=== PATIENT | female | born 1945 | race Caucasian/White ===

== ENCOUNTER 2022-08-20 08:00 | Outpatient (NON) | payer MEDICARE, BC, SELFPAY | END 2022-08-20 08:01 | disposition home or self-care (01) | PROVIDERS: PCP Internal Medicine; Visit Provider Nurse Practitioner | DX: C44.1121 Basal cell carcinoma of skin of right upper eyelid, including canthus (principal) | CPT/HCPCS: 88305 ==

== ENCOUNTER 2022-10-05 14:25 | Outpatient (NON) | payer MEDICARE, BC, SELFPAY | END 2022-10-05 14:26 | disposition home or self-care (01) | LOC: ANHLAB 14:26 | PROVIDERS: PCP Internal Medicine; Visit Provider Nurse Practitioner | DX: C44.1122 Basal cell carcinoma of skin of right lower eyelid, including canthus (principal) | CPT/HCPCS: 88305; 88331 ==

== ENCOUNTER 2023-03-16 11:48 | Outpatient (NON) | payer MEDICARE, BC, SELFPAY | END 2023-03-16 11:49 | disposition home or self-care (01) | LOC: ANHLAB 03-17 11:50 | PROVIDERS: PCP Internal Medicine; Visit Provider Nurse Practitioner | DX: C44.719 Basal cell carcinoma of skin of left lower limb, including hip (principal) | CPT/HCPCS: 88305 ==

== ENCOUNTER 2023-05-03 14:18 | Outpatient (NON) | payer MEDICARE, BC, SELFPAY | END 2023-05-03 14:19 | disposition home or self-care (01) | LOC: ANHLAB 14:20 | PROVIDERS: PCP Internal Medicine; Visit Provider Nurse Practitioner | DX: C44.719 Basal cell carcinoma of skin of left lower limb, including hip (principal) | CPT/HCPCS: 88305; 88331; 88332 ==

== ENCOUNTER 2023-10-13 08:56 | Outpatient (CLI) | payer MEDICARE, BC, SELFPAY ==
--- NOTE | ~2023-10-13 | XR_ITS ---
XR chest 2V 10/13/2023 09:22 Indication: Cough. Procedure: 2 view chest Comparison: 07/06/2019 Findings: Right upper lobe airspace disease, compatible with pneumonia. Status post median sternotomy for CABG. There is a right breast implant. No significant effusion, edema or pneumothorax. Impression: 1: Right upper lobe pneumonia. Reviewed, dictated and finalized at location B. 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
== END 2023-10-13 08:57 | disposition home or self-care (01) ==
PROVIDERS: PCP Internal Medicine; Visit Provider Internal Medicine
DX: R05.9 Cough, unspecified (principal); J18.9 Pneumonia, unspecified organism
CPT/HCPCS: 71046

== ENCOUNTER 2024-10-16 12:28 | Outpatient (CLI) | payer MEDICARE, BC, SELFPAY ==
--- NOTE | ~2024-10-16 | XR_ITS ---
Lumbosacral Spine: AP and lateral views Clinical History: Pain Findings: No acute fracture evident. There is grade 1 retrolisthesis of L3 over L4. There is 9 mm ant erolisthesis of L5 over S1. There is probable fusion across the L1-L2 disc space with possible mild w edging deformities of the L1 and L2 vertebral bodies. There is moderate to advanced degenerative disc narrowing throughout the remainder of the lumbar spine. There is severe facet arthropathy throughout the lumbar spine. There is extensive atherosclerotic calcification of the aorta. Dextroscoliosis of the lumbar spine present. The sacroiliac joints are normally outlined. Impression: Severe degenerative spondylosis throughout the lumbar spine with dextroscoliosis. Please see details above. Probable fusion across L1-L2 disc space with probable mild anterior wedging deformities of L1 and L2. 9 mm anterolisthesis of L5 over S1. Mild grade 1 retrolisthesis of L3 over L4. Reviewed, dictated and finalized at location . S SUPPORT REPRESENTATIVE Impression: Severe degenerative spondylosis throughout the lumbar spine with dextroscoliosi s. Please see details above. Probable fusion across L1-L2 disc space with probable mild anterior wedging def ormities of L1 and L2. 9 mm anterolisthesis of L5 over S1. Mild grade 1 retrolisthesis of L3 over L4.
--- NOTE | ~2024-10-16 | XR_ITS ---
AP view of the pelvis and oblique views of the SI joints CLINICAL HISTORY: Back pain FINDINGS: No fracture or dislocation seen. Joint spaces at the hips and SI joints are intact. There i s degenerative spondylosis of lumbar spine. Soft tissues are unremarkable. IMPRESSION: Degenerative spondylosis of the lumbar spine. No fracture or sublocation. SI joints are intact. Reviewed, dictated and finalized at [facility]. 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
== END 2024-10-16 12:29 | disposition home or self-care (01) ==
PROVIDERS: PCP Internal Medicine; Visit Provider Internal Medicine
DX: M43.17 Spondylolisthesis, lumbosacral region (principal); M43.16 Spondylolisthesis, lumbar region; M47.896 Other spondylosis, lumbar region; G89.29 Other chronic pain
CPT/HCPCS: 72110; 72190

== ENCOUNTER 2025-02-27 12:35 | Inpatient (IN) | payer MEDICARE, BC, SELFPAY ==
[2025-02-27] VITALS (18 sets, daily range): BP systolic 92–153; BP diastolic 62–126; PULSE 101–132; RESP 16–24; TEMP 36.4–37.2; O2SAT 96–98; BMI 37.5
--- NOTE | 2025-02-27 | ECHO_ITS ---
Patient Info Name: Coni Lomeli Age: 79 years : 1945 Gender: Female Ht: 61 in Wt: 200 lbs BSA: 2.02 m2 HR: 120 bpm BP: 114 / 76 mmHg Heart Rhythm: Atrial Fibrillation, Tachycardia Technical Quality: Fair Exam Date: 02/27/2025 4:34 PM Exam Location: Echo Lab Patient Status: Inpatient Admit Date: 02/27/2025 Staff Ordering Physician: Gerson Lester MD Erp Implementation Consultant: Mandie Arshad RDCS Attending Provider: Jason Delaney MD Referring Physician: Tayler PERRY; Exam Type: CA echo doppler color flow Study Info Indications - New Afib, RVR Complete two-dimensional, color flow and Doppler transthoracic echocardiogram is performed with contrast to opacify the left ventricle and to improve the deliniation of the left ventricle endocardial borders. Contrast/Agitated Saline Contrast/Ag. Saline: Definity Amount: 8.00 ml Summary 1. Left ventricular chamber dimension is normal. 2. There is mildly increased left ventricular wall thickness. 3. Left ventricular systolic function is moderately reduced, estimated at 30-35%. 4. There is hypokinesis of the apex, anteroseptum, inferoseptum. 5. Right ventricular systolic function is normal. 6. Left atrial chamber dimension is moderately enlarged. 7. Right atrial chamber dimension is mildly enlarged. 8. There is mild tricuspid valve regurgitation. Left Ventricle Left ventricular chamber dimension is normal. There is mildly increased left ventricular wall thickness. Left ventricular systolic function is moderately reduced, estimated at 30-35%. There is hypokinesis of the apex, anteroseptum, inferoseptum. Left ventricular septal wall motion is abnormal with septal motion related to a post-operative state. The left ventricular diastolic function is abnormal. Right Ventricle Right ventricular chamber dimension is normal. Right ventricular systolic function is normal. Left Atria Left atrial chamber dimension is moderately enlarged. Right Atria Right atrial chamber dimension is mildly enlarged. Atrial Septum Intact interatrial septum visualized by color flow imaging. Aortic Valve The aortic valve is not well visualized. There is no aortic valve regurgitation. There is moderate aortic valve calcification. Pulmonic Valve The pulmonic valve is not well visualized. There is no pulmonic regurgitation. Mitral Valve The mitral valve has thickened leaflets. There is trace mitral valve regurgitation. The mitral valve annulus is moderately calcified. Tricuspid Valve There is mild tricuspid valve regurgitation. Pericardium/Pleural There is no pericardial effusion. Inferior Vena Cava Normal inferior vena cava with >50% collapse upon inspiration consistent with normal right atrial pressure, 3 mmHg. Aorta The aortic root size at the sinus of Valsalva is normal. Left Ventricular Outflow Tract Name Value Normal LVOT 2D LVOT Diameter 2.0 cm LVOT Doppler LVOT Peak Gradient 2 mmHg LVOT Mean Gradient 1 mmHg LVOT VTI 11 cm LVOT Stroke Volume 33 ml LVOT CO 3.9 l/min LVOT CI 1.9 l/min/m2 Pulmonic Valve Name Value Normal RVOT Doppler RVOT Peak Gradient 2 mmHg PV Doppler PV Peak Gradient 3 mmHg Mitral Valve Name Value Normal MV Doppler MV Decel Lewis 698 cm/s2 MV PHT 42 ms MV Area (PHT) 5.3 cm2 4.0-5.0 MV Diastolic Function MV E Peak Velocity 100 cm/s MV A Peak Velocity 0 cm/s MV E/A 237.5 MV Decel Time 144 ms MV Annular TDI MV E/e' (Septal) 9.8 <=8.0 MV E/e' (Lateral) 7.8 <=8.0 MV E/e' (Average) 8.8 Tricuspid Valve Name Value Normal TV Regurgitation Doppler TR Peak Velocity 239 cm/s TR Peak Gradient 23 mmHg Estimated PAP/RSVP RA Pressure 3 mmHg <=5 PA Systolic Pressure 26 mmHg <36 RV Systolic Pressure 26 mmHg <36 Aortic Valve Name Value Normal AV Regurgitation 2D LVOT Area 3.0 cm2 Ventricles Name Value Normal LV Dimensions 2D/MM IVS Diastolic Thickness (2D) 0.7 cm 0.6-1.0 LVID Diastole (2D) 5.0 cm 3.8-5.2 LVIW Diastolic Thickness (2D) 1.0 cm 0.6-0.9 LVID Systole (2D) 3.1 cm 2.2-3.5 LVOT Diameter 2.0 cm LV Mass (2D Cubed) 139.39 g 67.00-162.00 LV Mass Index (2D Cubed) 69 g/m2 43-95 Relative Wall Thickness (2D) 0.40 LV Fractional Shortening/Ejection Fraction 2D/MM LV Fractional Shortening (2D) 37 % 27-45 LV EF (2D Teicholz) 66 % 54-74 LV Diastolic Volume (4C MOD) 114 ml LV EF (4C MOD) 29 % LV Diastolic Volume (2C MOD) 110 ml LV EF (2C MOD) 36 % LV Diastolic Volume (BP MOD) 114 ml 46-106 LV Diastolic Volume Index (BP MOD) 56 ml/m2 29-61 LV Systolic Volume (BP MOD) 76 ml 14-42 LV Systolic Volume Index (BP MOD) 37 ml/m2 8-24 LV EF (BP MOD) 34 % 54-74 LV Diastolic Length (4C) 7.2 cm LV Systolic Length (4C) 7.2 cm LV Stroke Volume (4C MOD) 33 ml Atria Name Value Normal LA Dimensions LA Volume (4C A-L) 57 ml LA Volume (BP A-L) 67 ml RA Dimensions RA Area (4C) 19.0 cm2 <=18.0 Report Signatures
--- NOTE | ~2025-02-27 | XR_ITS ---
XR chest 2V Ordering provider: Carlos Haro MD History: 79 years Female with . new onset afib . Comparison: October 13, 2023 FINDINGS: Right breast implant. MEDIASTINUM: The cardiac silhouette is not enlarged. Postoperative changes in the mediastinum. LUNGS: No effusions or pneumothorax. Opacification in the left lung base suggestive of atelectasis ve rsus pneumonia. OTHER: No free air under the diaphragm. IMPRESSION: Left basilar atelectasis versus pneumonia. Reviewed, dictated and finalized at location A.
--- NOTE | 2025-02-27 12:37 | ECG_ITS ---
Test Date: 2025-02-27 12:42:08 Measurements Intervals [place] Rate: 123 P: 0 TN: 0 QRS: -42 QRSD: 103 T: 90 QT: 286 QTc: 410 Interpretive Statements ATRIAL FIBRILLATION WITH RAPID VENTRICULAR RESPONSE LEFT AXIS DEVIATION PATTERN CONSISTENT WITH PULMONARY DISEASE CANNOT R/O SEPTAL INFARCT, AGE INDETERMINATE LEFT VENTRICULAR HYPERTROPHY WITH ST-T CHANGE BORDERLINE ST-T WAVE ABNORMALITY- INFERIOR LEADS BASELINE ARTIFACT- I, II, III, AVR, AVL, AVF ABNORMAL ECG No previous ECG available for comparison Electronically Signed On 02-27-2025 13:00:50 CDT by Lester Botello D.O.
[2025-02-27 12:56] LABS: Basophils Percent Auto 0.4 % (0.2-1.2); Eosinophils Absolute Auto 0.3 K/mm3 (0-0.3); Eosinophils Percent Auto 4.1 % (0-4.4); Hematocrit 47.3 % (37.0-47.0); Hemoglobin 14.8 g/dL (12.0-15.0); Immature Granulocyte Absolute 0.02 K/mm3 (0.00-0.031); Immature Granulocyte Percent A 0.3 % (0-0.5); Lymphocytes Absolute Auto 2.05 K/mm3 (0.9-3.2); Lymphocytes Percent Auto 26.8 % (18.3-44.2); Mean Corpuscular HGB Conc 31.3 g/dl (32-36); Mean Corpuscular Hemoglobin 27.9 pg (26-34); Mean Corpuscular Volume 89.1 fl (80-100); Mean Platelet Volume 9.5 fl (7.4-10.4); Monocytes Absolute Auto 0.8 K/mm3 (0.1-0.6); Monocytes Percent Auto 10.3 % (2.6-8.5); Neutrophils Absolute Auto 4.5 K/mm3 (1.3-6.7); Neutrophils Percent Auto 58.1 % (45.5-73.1); Platelet Count Result 237 k/mm3 (150-375); Red Blood Count 5.31 M/mm3 (4.2-5.4); Red Cell Distribution Width 14.7 % (11.5-14.5); White Blood Count 7.7 K/mm3 (4.5-10.0)
[2025-02-27 13:06] LABS: Prothrombin Time 13.6 Seconds (11.1-14.7)
[2025-02-27 13:13] LABS: Alanine Aminotransferase 36 U/L (6-35); Albumin Level 4.7 g/dL (3.5-5.1); Alkaline Phosphatase 101 U/L (38-126); Anion Gap 13 mmol/L (4-12); Aspartate Amino Transferase 31 U/L (14-36); Bilirubin,Total 0.9 mg/dL (0.2-1.3); Blood Urea Nitrogen 24 mg/dL (7-17); Calcium 9.6 mg/dL (8.4-10.2); Carbon Dioxide 21 mmol/L (22-30); Chloride 108 mmol/L (98-107); Estimated CRCL calculation 39 ml/min; Estimated Glomerular Filt Rate 50; Glucose 107 mg/dL (65-110); Lipase 170 U/L (23-300); Potassium 4.3 mmol/L (3.4-5.0); Sodium 142 mmol/L (137-145)
[2025-02-27 13:25] LABS: Troponin I < 0.012 ng/mL (0.000-0.034)
[2025-02-27 13:39] LABS: Partial Thromboplastin Time 30.4 Seconds (22.3-36.8)
[2025-02-27] MEDS: ASPIRIN 81 MG CHEWABLE TABLET 324 MG PO (13:53)
[2025-02-27] MEDS: METOPROLOL TARTRATE INJ 5 MG/5 ML VIAL IV PUSH ×3 (13:54→14:40)
[2025-02-27] MEDS: HEPARIN SOD/D5W 100 UNITS/ML 25,000 UNITS/250 ML BAG 12 UNITS IV CONT (13:59)
[2025-02-27] MEDS: HEPARIN SODIUM 5,000 UNITS/ML VIAL 5000 UNITS IV PUSH (14:00)
--- OUTSIDE RECORDS SUMMARY | 2025-02-27 14:05 | XMS_ITS | Clinical Summary ---
Author Organization [facility] [address] Address [address] [place] [address] Care Team Providers Care [employer] Sports Coach Name Role Phone Manish Mckeon MD Primary Care Provider [phone] Allergies Active Allergy Reactions Criticality Noted Date Comments Sulfa (Sulfonamide Antibiotics) Medications metoprolol XL (TOPROL-XL) 25 mg 24 hr tablet take 1 tablet by oral route every day 0 0 12/31/2015 Active aspirin 325 mg tablet take 1 Tablet by oral route every day 0 0 12/31/2015 Active buPROPion SR (WELLBUTRIN SR) 150 mg 12 hr tablet take 1 tablet by oral route 2 times every day 0 0 12/31/2015 Active ezetimibe (ZETIA) 10 mg tablet Take 1 tablet (10 mg total) by mouth daily Active atorvastatin (LIPITOR) 80 mg tablet Take 1 tablet (80 mg total) by mouth daily Active amlodipine-valsa rtan (EXFORGE) 5-160 mg per tablet Take 1 tablet by mouth daily Active liraglutide (VICTOZA) 0.6 mg/0.1 mL (18 mg/3 mL) injection Inject under the skin Active HYDROcodone-acet aminophen (NORCO) 5-325 mg per tablet Take 1 tablet by mouth every 6 (six) hours as needed Active fish oil-dha-epa 1,200-144-216 mg capsule Take by mouth Active Synjardy XR 12.5-1,000 mg tablet, IR & ER, biphasic 24hr 05/31/2023 Activ e Active Problems Problem Noted Date Diagnosed Date Hx of CABG 08/10/2023 Encounters Date Type Department Care Team Description 02/13/2025 9:30 AM CDT Office Visit [facility] Cardiology [address] [place] [address] Willi Da Silva MD Hx of CABG (Primary Dx) from Last 3 Months Surgical History Surgery Date Site/Laterality Comments BREAST SURGERY Bilateral implants TUBAL LIGATION CORONARY ARTERY BYPASS GRAFT CATARACT EXTRACTION BREAST LUMPECTOMY BACK SURGERY Medical History Medical History Date Comments Anxiety ASHD (arteriosclerotic heart disease) Hypertension Cardiac arrest (HCC) Hyperlipidemia Diabetes mellitus (HCC) Skin lesions Family History Medical History Relation Name Comments Heart attack Father 2 Myocardial infa rction; Cause of : Myocardial infarction COPD Mother 2 COPD; Cause of : COPD Relation Name Status Comments Father 1 (Age 68) Father 2 Mother 1 (Age 65) Mother 2 Social History Tobacco Use Types Packs/Day Years Used Date Smoking Tobacco: Never Tobacco Cessation:Counseling Given: Not Answered Alcohol Use Standard Drinks/Week Comments No 0 (1 standard drink = 0.6 oz pur e alcohol) Comments Unknown Sex and Gender Information Value Date Recorded Sex Assigned at Not on file 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 Gender Identity Female 02/04/2024 7:29 AM CDT Sexual Orientation Straight 02/04/2024 7: 29 AM CDT Obstetrics History Last Filed Vital Signs Vital Sign Reading Time Taken Comments Blood Pressure 108/62 02/13/2025 9:13 AM CDT Pulse 78 02/13/2025 9:13 AM CDT Temperature - - Respiratory Rate - - Oxygen Saturation 97% 02/13/2025 9:13 AM CDT Inhaled Oxygen Concentration - - Weight 90.8 kg (200 lb 3.2 oz) 02/13/2025 9:13 A M CDT Height 154.9 cm (5' 1 ) 02/13/2025 9:13 AM CDT Body Mass Index 37.83 02/13/2025 9:13 AM CDT Plan of Treatment Health Maintenance Due Date Last Done Comments Depression Screening 1945 Fall Risk Assessment 1945 Osteoporosis Screening-Bone Density Scan 1945 DTaP/Tdap/Td Vaccine (1 - Tdap) 1955 Hepatitis B Screening 1962 Pneumococcal vaccine 65+ (1 of 1 - PCV) 1994 Zoster Vaccine (1 of 2) 1994 Well Visit 65+ 2009 Covid-19 Vaccine ( season) 2024 10/13/2021, 02/07/2021, 01/17/2021 Influenza Vaccine (Season Ended) 2025 Insurance MEDICARE [facility] MEDICARE [place] [employer] 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
--- OUTSIDE RECORDS SUMMARY | 2025-02-27 14:05 | XMS_ITS | Referral Summary ---
Author Organization [facility] [address] [facility] [address] [place] [address] Care Team Providers Care Visually Impaired Teacher Name Role Phone Manish Mckeon MD Primary Care Provider [phone] Encounters Date Type Department Care Team Description 02/13/2025 9:30 AM CDT Office Visit [facility] Cardiology [address] [place] [address] Willi Da Silva MD Hx of CABG (Primary Dx) from Last 3 Months Allergies Active Allergy Reactions Criticality Noted Date [...] Date Diagnosed Date Hx of CABG 08/10/2023 Social History Tobacco Use Types Packs/Day Years Used Date Smoking Tobacco: Never Tobacco Cessation:Counseling Given: Not Answered Alcohol Use Standard Drinks/Week Comments No 0 (1 standard drink = 0.6 oz pur e alcohol) Comments Unknown Sex and Gender Information Value Date Recorded Sex Assigned at Not on file 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 Gender Identity Female 02/04/2024 7:29 AM CDT Sexual Orientation Straight 02/04/2024 7: 29 AM CDT Last Filed Vital Signs Vital Sign Reading [...] 02/13/2025 9:13 AM CDT Plan of Treatment Not on file Insurance MEDICARE [employer] MEDICARE [employer] Member Subscriber Plan / Payer (Ef fective 2017-Present) Name:Coni Lomeli Relation to Subscriber:Spouse Name:LOMELIMARTELL HENRIQUEZ Date of :1944 (Home) Address: [facility] [place] [address] Payer ID:[id number] (NAIC) Type:BC ALLIANCE Address: [facility] [address] [id number] Care Teams Visually Impaired Teacher Relationship Specialty Start Date End Date Manish Mckeon MD [address] [place] [address] PCP - General 12/31/15
--- NOTE | 2025-02-27 14:08 | ED_ITS ---
HPI - Arrhythmia/Palpitations General Chief Complaint: Arrhythmia/Palpitations Stated Complaint: afib rvr Time Seen by Provider: 02/27/25 12:54 History of Present Illness HPI narrative: 79-year-old female with a past medical history including significant coronary disease with 5 vessel CABG, previous cardiac arrest 30 years ago, hypertension, hyperlipidemia diabetes. Patient presents the emergency department after being at her primary care provider's office and obtaining an EKG that shows AFib with RVR. No history of atrial fibrillation. Patient reported several months of exertional dyspnea and diaphoresis. No chest pain or dizziness. Patient has no symptoms at this time in the emergency department. EKG does confirm AFib RVR with some strain pattern consistent with her known coronary disease. Patient denies any systemic symptoms such as nausea, vomiting, headache, lightheadedness, chest pain or chest pressure, abdominal pain, leg swelling. Endorses diaphoresis and shortness of breath with exertion and states that this been going on for multiple months. Patient's primary care provider did contact me through ahead of time and informed me he was sending the patient to the ER. Patient aware of the plan for admission after workup. Related Data Allergies Allergy/AdvReac Type Severity Reaction Status Date / Time Sulfa (Sulfonamide Allergy Unknown causes a Verified 02/27/25 11:13 Antibiotics) fever Review of Systems 2 Review of Systems: As reviewed above in HPI [facility] Past Medical History Medical History SOB (shortness of breath) Encounter for routine adult health examination with abnormal findings Body mass index (BMI) 40.0-44.9, adult Pneumonia Encounter for routine adult health examination without abnormal findings Hearing loss Encounter for Medicare annual wellness exam Skin lesion Basal cell carcinoma Encounter to establish care Hx of cardiac arrest On shelter drug therapy Adult BMI 39.0-39.9 kg/sq m Chronic back pain Type 2 diabetes mellitus without complication Primary osteoarthritis of both wrists Pain of right hip joint 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 Mixed hyperlipidemia Essential (primary) hypertension Dysuria Colon cancer screening Breast cancer screening BMI 38.0-38.9,adult BMI 36.0-36.9,adult ASHD (arteriosclerotic heart disease) Anxiety Hypercalcemia Hernia Skin lesion of cheek Obesity Surgical History Surgical History S/P CABG x 5 S/P CABG (coronary artery bypass graft) History of bilateral breast implants H/O hernia repair Hx of cataract surgery History of tubal ligation Hx of CABG Hx of lumpectomy Previous back surgery Family History Family History Father Family history of coronary artery disease Social History Social History Smoking status: Never smoker Second hand tobacco smoke exposure: No Alcohol intake: former Substance use: never Substance use type: does not use Lack of Transportation: No Lack of Food: Never True Current Housing: I Have Housing Concerned About Future Housing: No Difficulty Paying Gas/Electric Bills: No Difficulty Paying for Meds: No Currently Unemployed: No Education: Associate Degree Difficulty w/ Childcare or Family Care: No Exam 2 Narrative: GENERAL: [Well-appearing, well-nourished, and in no acute distress.] HEAD: [Normocephalic, atraumatic.] EYES: [PERRLA and EOMI.] ENT: Nares clear, no rhinorrhea or epistaxis. Mucous membranes moist. NECK: Supple. CHEST: [Clear to auscultation. No respiratory distress.] HEART: Irregular rate and rhythm. No murmur heard. [Normal peripheral pulses.] ABDOMEN: [Soft, nondistended], [nontender], [No rigidity or guarding] EXTREMITIES: Normal range of motion. [No edema.] SKIN: Warm, dry, no rash. Varicose veins in the bilateral lower extremities at the ankle NEURO: [No focal deficits]. Alert and oriented [x3.] PSYCH: [Normal mood and affect.] Course Vital Signs Vital signs: Vital Signs Temperature 36.4 C L 02/27/25 12:40 Pulse Rate 121 H 02/27/25 12:40 Respiratory Rate 16 02/27/25 12:40 Blood Pressure 153/81 H 02/27/25 12:40 Pulse Oximetry 97 02/27/25 12:40 Oxygen Delivery Room Air 02/27/25 12:40 Temperature 36.4 C L 02/27/25 12:40 Pulse Rate 127 H 02/27/25 14:40 Respiratory Rate 19 02/27/25 14:39 Blood Pressure 120/96 H 02/27/25 14:39 Pulse Oximetry 96 02/27/25 14:39 Oxygen Delivery Room Air 02/27/25 12:40 MDM - Arrhythmia/Palpitations MDM Narrative Medical decision making narrative: 79-year-old female with complex cardiac history including five-vessel coronary disease and previous cardiac arrest about 30 years ago. She has a history of hypertension, hyperlipidemia and diabetes. Patient is not on any anticoagulation medications. Presents to the emergency department from her primary care provider's office for suspected AFib RVR. Patient has no history of dysrhythmia or AFib. Patient is on metoprolol 25 mg extended release daily for blood pressure control. Patient has no symptoms at this time but states for last several months she has been having exertional dyspnea and exertional diaphoresis. No chest pain or pressure. Saw her decoration checker Dr. Torres about 5 days ago with plans for potential outpatient stress test. Today she went to her PCP for routine follow-up visit and noted that her heart rate was in the 130s to 140s and irregular. Prompted to go to the emergency department. During my initial assessment patient is found to be in AFib RVR with an irregular rhythm but warm well-perfused extremities, no signs of cardiac decompensation as she has clear breath sounds and no edema. Blood pressure within acceptable range. No hypoxia. No tachypnea. Suspicion presently is for new onset atrial fibrillation, possible electrolyte deficiency, possible coronary disease since she has history of 5 vessel CABG. Low suspicion for acute NSTEMI or STEMI. No leg swelling or DVT symptoms or signs. Cardiac workup was ordered including serial troponins, serial EKG, CBC, CMP, chest x- ray. She was given 5 mg IV pushes of metoprolol Q 5 minutes p.r.n. as she takes metoprolol daily. Heparin was initiated for anticoagulation. Patient will be admitted to the IMU after completion workup. Workup shows no leukocytosis or anemia. Negative initial troponin. Coagulation panel initially normal. Electrolytes largely unremarkable. BUN and creatinine about baseline although GFR slightly lower. Glucose normal, normal LFTs. Negative lipase. Chest x-ray was independently reviewed and does have some opacification left lung base suspicious for atelectasis rather than infectious pathology. She has not febrile, not hypoxic or having any shortness of breath at rest. Will defer to primary team if they want to initiate antibiotics but likely more atelectasis. Initial EKG consistent with AFib RVR and does have some ST segment depressions in the lateral leads likely rate dependent. We will re-evaluate after rate control. Patient initiated on heparin at bedside. Patient remains asymptomatic during my re-evaluations. Heart rate now in the low 110s, blood pressure stable. Discussed with the hospitalist team currently being covered by the midlevel provider Imelda. Patient was accepted the IMU at this time. Echocardiogram ordered as well as admission orders placed. Medical Records Attestation: I reviewed the patient's medical records. Lab Data Attestation: I reviewed the patient's lab results. 02/27/25 14:19 02/27/25 12:50 Labs: Lab Results 02/27/25 02/27/25 Range/Units 12:50 14:19 WBC 7.7 7.1 (4.5-10.0) K/mm3 RBC 5.31 5.14 (4.2-5.4) M/mm3 Hgb 14.8 14.4 (12.0-15.0) g/dL Hct 47.3 H 45.7 (37.0-47.0) % MCV 89.1 88.9 (80-100) fl MCH 27.9 28.0 (26-34) pg MCHC 31.3 L 31.5 L (32-36) g/dl RDW 14.7 H 14.6 H (11.5-14.5) % Plt Count 237 230 (150-375) k/mm3 MPV 9.5 9.9 (7.4-10.4) fl Immature Gran % (Auto) 0.3 0.3 (0-0.5) % Neut % (Auto) 58.1 60.4 (45.5-73.1) % Lymph % (Auto) 26.8 24.0 (18.3-44.2) % Nolan % (Auto) 10.3 H 10.2 H (2.6-8.5) % Eos % (Auto) 4.1 4.5 H (0-4.4) % Baso % (Auto) 0.4 0.6 (0.2-1.2) % Lymph # (Auto) 2.05 1.70 (0.9-3.2) K/mm3 Nolan # (Auto) 0.8 H 0.7 H (0.1-0.6) K/mm3 Eos # (Auto) 0.3 0.3 (0-0.3) K/mm3 Baso # (Auto) 0.0 0.0 (0.0-0.1) K/mm3 Abs Immat Gran (auto) 0.02 0.02 (0.00-0.031) K/mm3 Absolute Neuts (auto) 4.5 4.3 (1.3-6.7) K/mm3 Absolute Nucleated RBC 0.000 0.000 (0.0-0.012) K/mm3 Nucleated RBC % 0.0 0.0 (0.0-0.2) % PT 13.6 Pending (11.1-14.7) Seconds INR 1.0 Pending APTT 30.4 Pending (22.3-36.8) Seconds Sodium 142 (137-145) mmol/L Potassium 4.3 (3.4-5.0) mmol/L Chloride 108 H (98-107) mmol/L Carbon Dioxide 21 L (22-30) mmol/L Anion Gap 13 H (4-12) mmol/L BUN 24 H (7-17) mg/dL Creatinine 1.05 H (0.7-1.0) mg/dL Estim Creat Clear Calc 39 ml/min Estimated GFR 50 L (59 - ) Glucose 107 (65-110) mg/dL Calcium 9.6 (8.4-10.2) mg/dL Total Bilirubin 0.9 (0.2-1.3) mg/dL AST 31 (14-36) U/L ALT 36 H (6-35) U/L Alkaline Phosphatase 101 (38-126) U/L Troponin I < 0.012 (0.000-0.034) ng/mL Total Protein 8.0 (6.3-8.2) g/dL Albumin 4.7 (3.5-5.1) g/dL Lipase 170 (23-300) U/L Imaging Data Attestation: I personally reviewed and interpreted this imaging study as follows: My impression: Impressions Chest X-Ray 02/27/25 13:51 IMPRESSION: Left basilar atelectasis versus pneumonia. ECG Data EKG #1: Attestation: I personally reviewed and interpreted this ECG as follows: ECG completion date: 02/27/25 ECG completion time: 12:42 Prior ECG tracings: not available for review Interpretation: Rate of 124, no identifiable P waves, QTC 410, some lateral ST depressions in leads 1 and aVL with no ST segment elevations. Atrial fibrillation. No previous EKG in the chart for comparison. Critical Care Time Critical Care Time Critical Care Time: Yes Total Critical Care Time: 60 Discharge Plan Discharge Clinical Impression: Atrial fibrillation with rapid ventricular response, New onset a-fib, Hx of CABG Patient Disposition: Still a Patient Condition: Stable Patient Language: American Prescriptions: No Action (DME) pen needle, diabetic 32 gauge x 1/4 needle See Rx Instructions .Route Qty: 100 3RF Rx Instructions: As directed. For use with Victoza pen BD micro/ultra fine needle nitroglycerin 0.4 mg tablet, sublingual 0.4 mg sublingual Q5M PRN (Reason: chest pain) Qty: 25 0RF Rx Instructions: do not exceed 3 doses per episode metoprolol succinate 25 mg tablet extended release 24 hr 25 mg PO BID Qty: 180 1RF atorvastatin 80 mg tablet See Rx Instructions .ROUTE .COMPLEX Qty: 90 1RF Dose Instruction: TAKE 1 TABLET DAILY Rx Instructions: TAKE 1 TABLET DAILY bupropion HCl 150 mg tablet sustained-release 12 hr See Rx Instructions .ROUTE .COMPLEX Qty: 180 1RF Dose Instruction: TAKE 1 TABLET TWICE A DAY Rx Instructions: TAKE 1 TABLET TWICE A DAY Victoza 3-Marty 0.6 mg/0.1 mL (18 mg/3 mL) pen injector See Rx Instructions .ROUTE .COMPLEX Qty: 27 1RF Dose Instruction: INJECT 0.3ML (=1.8MG) SUBCUTANEOUSLY DAILY Rx Instructions: INJECT 0.3ML (=1.8MG) SUBCUTANEOUSLY DAILY hydrocodone-acetaminophen 5-325 mg tablet 1 tablet PO Q4-6H PRN (Reason: pain) Qty: 60 0RF ezetimibe 10 mg tablet See Rx Instructions .ROUTE .COMPLEX Qty: 90 1RF Dose Instruction: TAKE 1 TABLET DAILY Rx Instructions: TAKE 1 TABLET DAILY Synjardy XR 12.5-1,000 mg tablet, IR - ER, biphasic 24hr 1 tablet PO DAILY Qty: 90 1RF Rx Instructions: Please D/C the Alejandrina. Thank you amlodipine-valsartan [Exforge] 5-160 mg tablet 1 tablet PO DAILY Qty: 90 1RF Follow-up/Referrals: Manish Mckeon MD [Primary Care Provider] - Time of Disposition: 14:55
[2025-02-27 14:25] LABS: Basophils Percent Auto 0.6 % (0.2-1.2); Eosinophils Absolute Auto 0.3 K/mm3 (0-0.3); Eosinophils Percent Auto 4.5 % (0-4.4); Hematocrit 45.7 % (37.0-47.0); Hemoglobin 14.4 g/dL (12.0-15.0); Immature Granulocyte Absolute 0.02 K/mm3 (0.00-0.031); Immature Granulocyte Percent A 0.3 % (0-0.5); Mean Corpuscular HGB Conc 31.5 g/dl (32-36); Mean Corpuscular Volume 88.9 fl (80-100); Mean Platelet Volume 9.9 fl (7.4-10.4); Monocytes Absolute Auto 0.7 K/mm3 (0.1-0.6); Monocytes Percent Auto 10.2 % (2.6-8.5); Neutrophils Absolute Auto 4.3 K/mm3 (1.3-6.7); Neutrophils Percent Auto 60.4 % (45.5-73.1); Platelet Count Result 230 k/mm3 (150-375); Red Blood Count 5.14 M/mm3 (4.2-5.4); Red Cell Distribution Width 14.6 % (11.5-14.5); White Blood Count 7.1 K/mm3 (4.5-10.0)
[2025-02-27 14:40] LABS: INR 1.1; Prothrombin Time 14.9 Seconds (11.1-14.7)
--- OUTSIDE RECORDS SUMMARY | 2025-02-27 14:51 | XMS_ITS | Clinical Summary ---
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
--- OUTSIDE RECORDS SUMMARY | 2025-02-27 14:51 | XMS_ITS | Referral Summary ---
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
--- OUTSIDE RECORDS SUMMARY | 2025-02-27 14:51 | XMS_ITS | Continuity of Care Document ---
Author Organization [facility] Address [address] [place] [address] Phone Care Team Providers Care Physicians Assistant Name Role Phone Miguel Angel Hernandez Unavailable Unavailable Procedures Procedure Date Post-op Follow-up Visit Remove Cataract, Insert Lens PreOp Assessment Performed No Charge Cataract Check Eye Exam & Treatment Dilated Retinal Exam W Interpretation Oc IOLMaster-Professional Office/outpatient Visit, Est Dilated Retinal Exam W Interpretation Ap Refraction Post-op Follow-up Visit Post-op Follow-up Visit Remove Cataract, Insert Lens No Charge Cataract Check Office/outpatient Visit, [facility] IOLMaster Advance Directives Directive Yes / No Effective Date File Name No Information Encounters Encounter Description Practice Location Reason(s) For Visit Diagnoses Date Provider Providers Copied on Encounter [facility], [address] [place] [address] [address], [place], [place], [id number], [place] tel:[phone] [facility] No Information 0 David Michelle. [address] , [address], [place], [address], [place]. tel:[phone] [facility], [address], [place], [place], [id number], [place] tel:[phone] [facility] No Information Nov-1 6-201 0 Doijason Edamado. [address] , [address], [place], [place], [facility][note 3], [place]. tel:[phone] [facility], [address], [place], [place], [id number], [place] tel:[phone] [facility] No Information Oct-2 6-201 0 Doisy Edamado. [address] , [address], [place], [place], [facility][note 3], [place]. tel:[phone] [facility], [address] [place] [address] [address], [place], [place], [address], [place] tel:[phone] [facility] No Information Oct-2 0-201 0 David Edamado. [address], [address], [place], [place], [facility][note 3], [place]. tel:[phone] Referring Provider: Miguel Angel Ramirez, [facility] [address], [place], [place], [facility][note 3]. tel:[phone] Office/outpat ient Visit, [facility], [address] [place] [address] [address], [place], [place], [address], [place] tel:[phone] [facility] No Information Apr-0 5-201 0 David Michelle. [address], [place], [place], [facility][note 3], [place]. tel:[phone] Referring Provider: Miguel Angel Ramirez, [address], [place], [place], [facility][note 3]. tel:[phone] [facility], [address] [place] [address] [address], [place], [place], [address], [place] tel:[phone] [facility] No Information Oct-0 7-200 9 David Edamado. [address], [place], [address], [place]. tel:[phone] [facility], [address], [place], [place], [address], [place] tel:[phone] [facility] No Information Sep-2 3-200 9 David Michelle. [address] , [address], [place], [place], [facility][note 3], [place]. tel:[phone] [facility], [address], [place], [place], [id number], [place] tel:[phone] [facility] No Information Sep-2 2-200 9 Doijason Michelle. [address] , [address], [place], [place], [facility][note 3], [place]. tel:[phone] Referring Provider: Manish Mckeon MD C, [address], [place], [place], [facility]. tel:[phone] [facility], [address], [place], [place], [address], [place] tel:[phone] [facility] No Information Sep-0 8-200 9 Doijason Michelle. [address] [facility] [address] [address] , [address], [place], [address], [place]. tel:[phone] Referring Provider: Miguel Angel Ramirez, [facility] [address], [place], [place], [facility][note 3]. tel:[phone] Office/outpat ient Visit, [facility], [address], [place], [place], [id number], [place] tel:[phone] [facility] No Information Aug-2 7-200 9 David Michelle. [address] , [address], [place], [address], [place]. tel:[phone] Referring Provider: Lucina King OD, [address] [place] [address], [address]. tel:[phone] Family History Family Member Type Diagnosis Age At Onset No Information Payers Payer name Insurance type Covered democrat ID Authoriza tion(s) No Information Social History Type Description Quantity Date Captured Comments Sex Female Smoking Status No Information Chief Complaint And Reason For Visit No Information Reason For Referral Reason For Referral No Information History Of Present Illness Encounter Date Complaint History Of Prese nt Illness No Information Functional Status Date Functional Assessmen t No Information Instructions Date Instruction Additional Infor mation No Information Assessments Type Assessment Date No Information Patient Care Teams Name Effective Dates (start - stop) Status Members No Information
[2025-02-27 14:58] LABS: Partial Thromboplastin Time > 200.0 Seconds (22.3-36.8)
--- NOTE | 2025-02-27 15:14 | ECG_ITS ---
Test Date: 2025-02-27 15:29:13 Measurements Intervals [place] Rate: 116 P: 0 TX: 0 QRS: -43 QRSD: 116 T: 76 QT: 330 QTc: 460 Interpretive Statements ATRIAL FLUTTER/TACHYCARDIA WITH RAPID VENTRICULAR RESPONSE LEFT AXIS DEVIATION INTRAVENTRICULAR CONDUCTION DELAY PATTERN CONSISTENT WITH PULMONARY DISEASE LEFT VENTRICULAR HYPERTROPHY AND ST-T CHANGE CANNOT R/O SEPTAL INFARCT, AGE INDETERMINATE BASELINE ARTIFACT- I, III, AVR, AVL ABNORMAL ECG Compared to ECG 02/27/2025 12:42:08 NO SIGNIFICANT CHANGE Electronically Signed On 02-27-2025 15:57:08 CDT by Lester Botello D.O.
[2025-02-27 15:50] LABS: Partial Thromboplastin Time 190.8 Seconds (22.3-36.8)
[2025-02-27 15:52] LABS: Troponin I 0.022 ng/mL (0.000-0.034)
--- NOTE | 2025-02-27 16:29 | ADMGEN ---
This patient, Coni Lomeli, was admitted to IMU Room 214-01. Patient/family oriented to hospital policies and general routines including ID bracelet, bed and alarms, visiting hours, pain management, procedures, bathroom and other care routines, personal items, smoking policy, room service/diet, and visiting hours. Information on how to activate the Rapid Response Team has been discussed. Patient/Family are encouraged to report perceived risks to care and to ask questions if they do not understand what they are told or what they should do.
--- NOTE | 2025-02-27 16:39 | P.HP_ITS ---
H&P: HPI History of Present Illness Date/Time: 02/27/25 16:39 Chief Complaint: New Cardiac Dysrhythmia, Exertional SOB Narrative: 79 y/o F with PMH of diabetes, HLD, HTN, atherosclerotic heart disease, CABG (5 vessel), cardiac arrest (30 years ago), and anxiety presents here with new atrial fibrillation. The patient presents here via wheelchair from her PCP on 02/27 for further evaluation of new onset atrial fibrillation. The patient was at her routine exam today with Mike ARMIJO. At this visit she reported 5 to 6 months of intermittent exertional dyspnea. Has not been bothersome, however the shortness of breath is accompanied by diaphoresis. She reports it is significant and she will be diaphoretic from her head to her toes and would occur at rest as well as with activity. She denies chest pain, dizziness, palpitations, lower extremity edema, weight gain, nausea, vomiting, or diarrhea. Per the patient's PCP note from today, the patient saw her outdoor studies professor (Rekha ARMIJO) 5 days prior. She was offered a Lexiscan which she opted out as she did not get the impression it was absolutely necessary and more just offered. No changes to her medications at that visit. PCP obtained an in office EKG which showed new dysrhythmia. Initially believed to be atrial fibrillation with RVR, however cardiology reviewed and now reading EKG as atrial flutter/tachycardia with RVR. The patient arrived to the emergency department with a heart rate in the 120s. Repeat EKG redemonstrated atrial flutter/tachycardia with RVR. Denies any recent surgery, immobilization, hemoptysis or pain redness to her lower extremities. Initial VS at presentation: 97.5? F, HR 121, RR 16, 153/81, and 97% on RA. ED workup showed: No leukocytosis, no anemia, INR 1.1, creatinine 1.05 and GFR 50 (previously 0.96 and GFR 60 on 02/23/2025), initial troponin negative. CXR showed left basilar atelectasis versus pneumonia. EKG showed atrial flutter/tachycardia with RVR, left axis deviation, pattern consistent with pul monary disease, cannot rule out septal infarct age indeterminate, LVH with ST-T change, borderline ST-T-wave abnormality inferior leads. Review of Systems Review of Systems: All systems reviewed & are unremarkable except as noted in HPI and below [facility] Past Medical History Medical History Pneumonia Hearing loss Skin lesion Basal cell carcinoma Hx of cardiac arrest On care home drug therapy Chronic back pain Type 2 diabetes mellitus without complication Primary osteoarthritis of both wrists Pain of right hip joint Mixed hyperlipidemia Essential (primary) hypertension Dysuria Colon cancer screening Breast cancer screening ASHD (arteriosclerotic heart disease) Anxiety Hypercalcemia Hernia Skin lesion of cheek Obesity Surgical History Surgical History S/P CABG x 5 History of bilateral breast implants H/O hernia repair Hx of cataract surgery History of tubal ligation Hx of lumpectomy Previous back surgery Family History Family History Father Family history of coronary artery disease Social History Social History Smoking status: Never smoker Second hand tobacco smoke exposure: No Alcohol intake: never Substance use: never Substance use type: does not use Do You Feel Safe in your Home?: Yes Lack of Transportation: No Lack of Food: Never True Current Housing: I Have Housing Concerned About Future Housing: No Difficulty Paying Gas/Electric Bills: No Difficulty Paying for Meds: No Currently Unemployed: No Education: Decline to Answer Difficulty w/ Childcare or Family Care: No Spiritual care concerns: No Meds Home Medications and Allergies Home Medications ?Medication ?Instructions ?Recorded ?Confirmed ?Type atorvastatin 80 mg tablet See Rx Instructions .Route 09/29/24 02/27/25 Rx .COMPLEX #90 tabs bupropion HCl 150 mg tablet,12 hr See Rx Instructions .Route 10/16/24 02/27/25 Rx sustained-release .COMPLEX #180 tabs liraglutide 0.6 mg/0.1 mL (18 mg/3 See Rx Instructions .Route 10/16/24 02/27/25 Rx mL) subcutaneous pen injector .COMPLEX #27 mL (Victoza 3-Marty) hydrocodone 5 mg-acetaminophen 325 1 tablet PO Q4-6H PRN pain #60 tabs 01/10/25 02/27/25 Rx mg tablet empagliflozin 12.5 mg-metformin ER 1 tablet PO DAILY #90 ea 02/06/25 02/27/25 Rx 1,000 mg tablet,extended rel 24 hr (Synjardy XR) ezetimibe 10 mg tablet See Rx Instructions .Route 02/06/25 02/27/25 Rx .COMPLEX #90 tabs amlodipine 5 mg-valsartan 160 mg 1 tablet PO DAILY #90 tabs 02/24/25 02/27/25 Rx tablet (Exforge) ascorbic acid (vitamin C) 1,000 mg 1,500 g PO DAILY 02/27/25 02/27/25 History tablet (C-1000) aspirin 325 mg tablet 325 mg PO DAILY 02/27/25 02/27/25 History mag citrate-potassium citrate 210 mg PO DAILY 02/27/25 02/27/25 History metoprolol succinate 25 mg 25 mg PO DAILY 02/27/25 02/27/25 History tablet,extended release 24 hr kovtfvxa-jsvc-aeib 8 mg-folic 400 1 tablet PO DAILY 02/27/25 02/27/25 History mcg-K 50 mcg-lutein 300 mcg tablet (Centrum Silver Women) nitroglycerin 0.4 mg sublingual 0.4 mg sublingual Q5M PRN chest 02/27/25 02/27/25 Rx tablet pain #25 tabs pen needle, diabetic 32 gauge x #100 ea 02/27/25 02/27/25 Rx 1/4 vitamin E 268 mg (400 unit) capsule 268 mg PO DAILY 02/27/25 02/27/25 History Allergies Allergy/AdvReac Type Severity Reaction Status Date / Time Sulfa (Sulfonamide Allergy Unknown causes a Verified 02/27/25 11:13 Antibiotics) fever Vital Signs Vital Signs - 24 hr 02/27/25 12:40 02/27/25 13:54 02/27/25 14:19 Temperature 97.5 F L Pulse Rate 121 H 120 H 132 H Respiratory Rate 16 18 Blood Pressure 153/81 H 146/126 H Pulse Oximetry 97 98 Oxygen Delivery Room Air 02/27/25 14:20 02/27/25 14:26 02/27/25 14:39 Temperature Pulse Rate 130 H 123 H 126 H Respiratory Rate 19 19 Blood Pressure 121/88 120/96 H Pulse Oximetry 98 96 Oxygen Delivery 02/27/25 14:40 02/27/25 15:16 02/27/25 15:57 Temperature Pulse Rate 127 H 116 H 116 H Respiratory Rate 18 20 Blood Pressure 114/76 128/82 Pulse Oximetry 97 96 Oxygen Delivery 02/27/25 16:29 Temperature 97.6 F Pulse Rate 117 H Respiratory Rate 24 H Blood Pressure 136/85 Pulse Oximetry 97 Oxygen Delivery Exam Const: General: comfortable and no acute distress Other: , female, elderly, nontoxic appearance HENMT: Face/Nose/Sinus: Normal nares present Mouth: Yes moist mucous membranes Eyes: General: appearance normal, both eyes and all related structures Sclera: sclerae normal Pupils: Equal, round and reactive pupils present EOM: EOMs intact bilaterally Resp: Effort & Inspection: normal respiratory effort Auscultation: clear to auscultation bilaterally Cardio: Rate: tachycardic (Mild, 110-117) Rhythm: abnormal rhythm (Consistent with new atrial flutter) Other: No murmur or rub. GI: Other: Abdomen soft, nondistended, nontender. Normoactive bowel sounds in all quadrants. Skin: General skin exam: normal color and no rashes or lesions noted Wounds: no wounds Neuro: Speech: normal speech Motor exam (neuro): 5/5 motor strength present throughout Sensory Exam: normal sensation Other: A&O x4 Extrem: General: normal to inspection Psych: Mental Status: mental status grossly normal Affect: normal affect Other: Good insight and judgment, very pleasant H&P: Results Labs Labs: Short CBC 02/27/25 02/27/25 Range/Units 12:50 14:19 WBC 7.7 7.1 (4.5-10.0) K/mm3 Hgb 14.8 14.4 (12.0-15.0) g/dL Hct 47.3 H 45.7 (37.0-47.0) % Plt Count 237 230 (150-375) k/mm3 BMP 02/27/25 12:50 Sodium 142 Potassium 4.3 Chloride 108 H Carbon Dioxide 21 L BUN 24 H Creatinine 1.05 H Glucose 107 Calcium 9.6 Cardiac Enzymes 02/27/25 02/27/25 Range/Units 12:50 15:19 Troponin I < 0.012 0.022 D (0.000-0.034) ng/mL Liver Function 02/27/25 Range/Units 12:50 Total Bilirubin 0.9 (0.2-1.3) mg/dL AST 31 (14-36) U/L ALT 36 H (6-35) U/L Alkaline Phosphatase 101 (38-126) U/L Albumin 4.7 (3.5-5.1) g/dL Assessment and Plan Assessment and plan (1) Atrial flutter with rapid ventricular response: Code(s): I48.92 - Unspecified atrial flutter Status: Acute Assessment and Plan: Initial EKG showed atrial flutter/atrial tachycardia with RVR. See report for full details. Previously on metoprolol ER 25 mg daily. Given metoprolol 5 mg IV x3 (121 -> 117) however now back and sustaining in the 120s. Will start diltiazem gtt at 5 mg/hr with 10 mg IV push. Heparin initiated to bridge to anticoagulation, CHADSVasc 6. Check echo (none on file). Recent TSH was WNL on 02/23/25 Cardiology consulted. Admission to IMU for close hemodynamic monitoring and telemetry monitoring. (2) SOB (shortness of breath): Code(s): R06.02 - Shortness of breath Status: Acute Assessment and Plan: CXR showed a left basilar atelectasis versus pneumonia. Personal review of imaging favors atelectasis. Patient is afebrile and no leukocytosis, low suspicion for pneumonia. Continue to monitor WBC. New atrial flutter discovered at her PCP office, see above. No echo on file, ordered due to new atrial flutter. Wells criteria: 0 No anemia or significant electrolyte derangements on initial lab work. DDx: Paroxysmal atrial flutter, congestive heart failure, pneumonia, myocardial infarction. In favor of paroxysmal atrial flutter, unclear onset. (3) Diabetes mellitus type 2 in obese: Code(s): E11.69 - Type 2 diabetes mellitus with other specified complication; E66.9 - Obesity, unspecified Status: Acute Assessment and Plan: hypoglycemia protocol POC blood glucose ACHS home medication: Hold Synjardy XR in case of need for contrast. Hold Victoza 1.8 mg SQ daily (NF). correct regimen ordered - high dose TIDWM and HS, based off BMI A1C 5.7% on 02/23/2025 (4) Hypertension: Qualifiers: Hypertension type: primary hypertension Qualified Code(s): I10 - Essential (primary) hypertension Code(s): I10 - Essential (primary) hypertension Status: Acute Assessment and Plan: chronic, currently 104/63 continue home medications: Hold Amlodipine-valsartan 5-160 mg daily, low end of normal, resume when appropriate. Hold metoprolol ER 25 mg daily, new atrial flutter requiring med adjustments. monitor Plan Diet: Heart healthy GI Prophylaxis: Not currently indicated DVT Prophylaxis: Heparin gtt IV fluids: None Lines/Tubes: Peripheral IV Code Status: Full code Quality VTE Prophylaxis VTE prophylaxis: pharmacologic ordered Hospitalist MIPS Advance Care Plan I have confirmed that the patient's Advanced Care Plan is present, code status is documented, or surrogate decision maker is listed in patient medical record.: Yes Medication Reconciliation I have utilized all available resources to obtain, update and review the patients current medications (includes all prescriptions, OTC, herbals, cannabis, and nutritional supplements).: Yes
[2025-02-27] MEDS: PERFLUTREN LIPID MICROSPHERES 1.5 ML VIAL DILUTED TO 10 ML TOTAL VOLUME IV PUSH (17:10)
--- NOTE | 2025-02-27 17:32 | IVDEFINITY ---
Prior to administration of IV Definity the patient was educated on the risks and benefits of the imaging enhancing agent including potential adverse side effects. The patient verbalized understanding. Allergies were verified. No exclusion criteria were identified and at least one of the following inclusion criteria were met: 1) physician request, 2) patient technically difficult to image (per the [place] [employer] Echocardi[employer] guidelines of two or more segments not discernable within the apical view), or 3) questionable left ventricular function. ?
--- OUTSIDE RECORDS SUMMARY | 2025-02-27 17:47 | XMS_ITS | Continuity of Care Document ---
Author Organization [facility] Address [address] [place] [address] Phone Care Team Providers Care Ross Carrier Driver Name Role Phone Miguel Angel Hernandez Unavailable Unavailable Procedures Procedure Date Post-op Follow-up Visit Remove Cataract, Insert Lens PreOp Assessment Performed No Charge Cataract Check Eye Exam & Treatment Dilated Retinal Exam W Interpretation Oc IOLMaster-Professional Office/outpatient Visit, Est Dilated Retinal Exam W Interpretation Ap Refraction Post-op Follow-up Visit Post-op Follow-up Visit Remove Cataract, Insert Lens No Charge Cataract Check Office/outpatient Visit, [facility] IOLMaster Advance Directives Directive Yes / No Effective Date File Name No Information Encounters Encounter Description Practice Location Reason(s) For Visit Diagnoses Date Provider Providers Copied on Encounter [facility], [address] [place] [address] [address], [place], [place], [id number], [place] tel:[phone] [facility] No Information 0 David Michelle. [address] , [address], [place], [address], [place]. tel:[phone] [facility], [address], [place], [place], [address], [place] tel:[phone] [facility] No Information Nov-1 6-201 0 Doijason Edamado. [address] , [address], [place], [place], [facility], [place]. tel:[phone] [facility], [address], [place], [place], [address], [place] tel:[phone] [facility] No Information Oct-2 6-201 0 Doisy Edamado. [address] , [address], [place], [place], [facility], [place]. tel:[phone] [facility], [address] [place] [address] [address], [place], [place], [address], [place] tel:[phone] [facility] No Information Oct-2 0-201 0 David Edamado. [address], [address], [place], [place], [facility], [place]. tel:[phone] Referring Provider: Miguel Angel Ramirez, [facility] [address], [place], [place], [facility]. tel:[phone] Office/outpat ient Visit, [facility], [id number] [place] [address] [address], [place], [place], [address], [place] tel:[phone] [facility] No Information Apr-0 5-201 0 David Michelle. [address], [place], [place], [facility], [place]. tel:[phone] Referring Provider: Miguel Angel Ramirez, [address], [place], [facility]. tel:[phone] [facility], [address] [place] [address] [address], [place], [place], [address], [place] tel:[phone] [facility] No Information Oct-0 7-200 9 David Edamado. [address], [place], [address], [place]. tel:[phone] [facility], [address], [place], [place], [address], [place] tel:[phone] [facility] No Information Sep-2 3-200 9 David Michelle. [address] , [address], [place], [place], [facility], [place]. tel:[phone] [facility], [address], [place], [place], [address], [place] tel:[phone] [facility] No Information Sep-2 2-200 9 Doijason Michelle. [address] , [address], [place], [place], [facility], [place]. tel:[phone] Referring Provider: Manish Mckeon MD C, [address], [place], [place], [facility]. tel:[phone] [facility], [address], [place], [place], [address], [place] tel:[phone] [facility] No Information Sep-0 8-200 9 Doijason Michelle. [address] , [address], [place], [address], [place]. tel:[phone] Referring Provider: Miguel Angel Ramirez, [facility] [address], [place], [place], [facility]. tel:[phone] Office/outpat ient Visit, [facility], [address], [place], [place], [address], [place] tel:[phone] [facility] No Information Aug-2 7-200 9 David Michelle. [address] , [address], [place], [address], [place]. tel:[phone] Referring Provider: Lucina King OD, [address] [place] [address], [address]. tel:[phone] Family History Family Member Type Diagnosis Age At Onset No Information Payers Payer name Insurance type Covered green party ID Authoriza tion(s) No Information Social History [...]
--- OUTSIDE RECORDS SUMMARY | 2025-02-27 17:47 | XMS_ITS | Referral Summary ---
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
--- OUTSIDE RECORDS SUMMARY | 2025-02-27 17:47 | XMS_ITS | Clinical Summary ---
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
[2025-02-27] MEDS: dilTIAZem HCl INJ 25 MG/5 ML VIAL 10 MG IV PUSH (18:19)
[2025-02-27] MEDS: dilTIAZem 100 MG/100 ML 100 MG/100 ML BAG IV CONT (18:20)
[2025-02-27 20:06] LABS: Glucose Point of Care 115 mg/dl (65-105)
[2025-02-27] MEDS: buPROPion HCL SR (12 HR) 150 MG TAB PO (20:24)
[2025-02-27 20:30] LABS: Troponin I 0.023 ng/mL (0.000-0.034)
[2025-02-28] VITALS (26 sets, daily range): BP systolic 100–108; BP diastolic 50–86; PULSE 78–137; RESP 18–20; TEMP 36.5–37.1; O2SAT 94–100
[2025-02-28 02:28] LABS: Basophils Percent Auto 0.6 % (0.2-1.2); Eosinophils Absolute Auto 0.3 K/mm3 (0-0.3); Eosinophils Percent Auto 4.2 % (0-4.4); Hematocrit 42.3 % (37.0-47.0); Hemoglobin 13.5 g/dL (12.0-15.0); Immature Granulocyte Absolute 0.02 K/mm3 (0.00-0.031); Immature Granulocyte Percent A 0.3 % (0-0.5); Lymphocytes Absolute Auto 1.94 K/mm3 (0.9-3.2); Lymphocytes Percent Auto 28.2 % (18.3-44.2); Mean Corpuscular HGB Conc 31.9 g/dl (32-36); Mean Corpuscular Hemoglobin 28.1 pg (26-34); Mean Corpuscular Volume 88.1 fl (80-100); Mean Platelet Volume 9.6 fl (7.4-10.4); Monocytes Absolute Auto 0.7 K/mm3 (0.1-0.6); Monocytes Percent Auto 10.3 % (2.6-8.5); Neutrophils Absolute Auto 3.9 K/mm3 (1.3-6.7); Neutrophils Percent Auto 56.4 % (45.5-73.1); Platelet Count Result 181 k/mm3 (150-375); Red Cell Distribution Width 14.6 % (11.5-14.5); White Blood Count 6.9 K/mm3 (4.5-10.0)
[2025-02-28 02:37] LABS: Alanine Aminotransferase 32 U/L (6-35); Alkaline Phosphatase 76 U/L (38-126); Anion Gap 10 mmol/L (4-12); Aspartate Amino Transferase 30 U/L (14-36); Bilirubin,Total 0.6 mg/dL (0.2-1.3); Blood Urea Nitrogen 27 mg/dL (7-17); Calcium 8.9 mg/dL (8.4-10.2); Carbon Dioxide 22 mmol/L (22-30); Chloride 107 mmol/L (98-107); Estimated CRCL calculation 41 ml/min; Estimated Glomerular Filt Rate 55; Glucose 85 mg/dL (65-110); Potassium 3.9 mmol/L (3.4-5.0); Sodium 139 mmol/L (137-145)
[2025-02-28 02:51] LABS: Partial Thromboplastin Time 91.8 Seconds (22.3-36.8)
[2025-02-28 08:55] LABS: Glucose Point of Care 93 mg/dl (65-105)
[2025-02-28] MEDS: EZETIMIBE 10 MG TABLET PO (09:19)
[2025-02-28] MEDS: ASCORBIC ACID 500 MG TABLET 1500 MG PO (09:19)
[2025-02-28] MEDS: VITAMIN E 400 UNIT CAPSULE PO (09:19)
[2025-02-28] MEDS: ATORVASTATIN 40 MG TABLET 80 MG PO (09:19)
[2025-02-28] MEDS: buPROPion HCL SR (12 HR) 150 MG TAB PO ×2 (09:19→20:29)
[2025-02-28] MEDS: THERAPEUTIC MULTIVITAMINS/MINERALS TAB (*BKC) 1 TABLET PO (09:19)
[2025-02-28] MEDS: dilTIAZem 100 MG/100 ML 100 MG/100 ML BAG 10 MG IV CONT (09:45)
[2025-02-28 10:36] LABS: Partial Thromboplastin Time 70.5 Seconds (22.3-36.8)
[2025-02-28] MEDS: HEPARIN SODIUM 5,000 UNITS/ML VIAL 2500 UNITS IV PUSH (10:58)
--- NOTE | 2025-02-28 11:05 | P.CONCA_ITS ---
Assessment and Plan Assessment and plan (1) Atrial fibrillation with rapid ventricular response: Code(s): I48.91 - Unspecified atrial fibrillation Status: Acute Plan 1. Atrial fibrillation / atrial flutter with RVR. New diagnosis of AFIB/AFL. TSH level normal. 2. CAD s/p CABG 3. History of cardiac arrest prior to CABG 4. Hypertension 5. Hyperlipidemia 6. Type 2 diabetes mellitus PLAN: -Remains in RVR despite Diltiazem drip. Given this, recommended LUANNE-guided DCCV. Discussed procedure with the patient, who is agreeable. As patient already ate today, will plan for LUANNE-guided DCCV tomorrow. NPO at midnight. -Can continue Diltiazem drip for now. Echocardiogram pending. If LVEF is reduced, then will need to stop Diltiazem. -Transition Heparin drip to Eliquis 5mg BID. -Recommend outpatient sleep study to evaluate for EVANS. History of Present Illness History of Present Illness Consult date/time: 02/28/25 11:05 Requesting physician: Tory Norwood APRN Consult reason: atrial fibrillation Reason For Visit: New onset AFIB RVR Narrative: Coni is an 79 year old female with CAD s/p CABG in 1997, history of cardiac arrest prior to CABG, hypertension, obesity who follows with Dr. Da Silva in the office. Had recently seen Dr. Da Silva on 02/13/2025, where she had reported exertional shortness of breath. Lexiscan was offered by Dr. Da Silva, however, patient declined as she did not want to undergo any ischemic evaluation at this time. Was seen at PCP's office yesterday for a routine follow up visit, no symptoms and otherwise feeling well. However, noted to be tachycardic. EKG showed atrial fibrillation with RVR, therefore, was sent to the ED. EKGs in the ED show atrial flutter with RVR. Started on Diltiazem drip and admitted for further management. She remains on Diltiazem drip, however, telemetry with AFIB/AFL with RVR. She otherwise feels well and does not have any specific complaints. Recent TSH level normal. Has been started on Heparin drip. Review of Systems 2 Review of Systems: All systems reviewed & are unremarkable except as noted in HPI and below (HPI) PMFSH Past Medical History Medical History Pneumonia Hearing loss Skin lesion Basal cell carcinoma Hx of cardiac arrest On [employer] drug therapy Chronic back pain Type 2 diabetes mellitus without complication Primary osteoarthritis of both wrists Pain of right hip joint Mixed hyperlipidemia Essential (primary) hypertension Dysuria Colon cancer screening Breast cancer screening ASHD (arteriosclerotic heart disease) Anxiety Hypercalcemia Hernia Skin lesion of cheek Obesity Surgical History Surgical History S/P CABG x 5 History of bilateral breast implants H/O hernia repair Hx of cataract surgery History of tubal ligation Hx of lumpectomy Previous back surgery Family History Family History Father Family history of coronary artery disease Social History Social History Smoking status: Never smoker Second hand tobacco smoke exposure: No Alcohol intake: never Substance use: never Substance use type: does not use Do You Feel Safe in your Home?: Yes Lack of Transportation: No Lack of Food: Never True Current Housing: I Have Housing Concerned About Future Housing: No Difficulty Paying Gas/Electric Bills: No Difficulty Paying for Meds: No Currently Unemployed: No Education: Decline to Answer Difficulty w/ Childcare or Family Care: No Spiritual care concerns: No Meds Home Medications and Allergies Home Medications ?Medication ?Instructions ?Recorded ?Confirmed ?Type atorvastatin 80 mg tablet See Rx Instructions .Route 09/29/24 02/27/25 Rx .COMPLEX #90 tabs bupropion HCl 150 mg tablet,12 hr See Rx Instructions .Route 10/16/24 02/27/25 Rx sustained-release .COMPLEX #180 tabs liraglutide 0.6 mg/0.1 mL (18 mg/3 See Rx Instructions .Route 10/16/24 02/27/25 Rx mL) subcutaneous pen injector .COMPLEX #27 mL (Victoza 3-Marty) hydrocodone 5 mg-acetaminophen 325 1 tablet PO Q4-6H PRN pain #60 tabs 01/10/25 02/27/25 Rx mg tablet empagliflozin 12.5 mg-metformin ER 1 tablet PO DAILY #90 ea 02/06/25 02/27/25 Rx 1,000 mg tablet,extended rel 24 hr (Synjardy XR) ezetimibe 10 mg tablet See Rx Instructions .Route 02/06/25 02/27/25 Rx .COMPLEX #90 tabs amlodipine 5 mg-valsartan 160 mg 1 tablet PO DAILY #90 tabs 02/24/25 02/27/25 Rx tablet (Exforge) ascorbic acid (vitamin C) 1,000 mg 1,500 g PO DAILY 02/27/25 02/27/25 History tablet (C-1000) aspirin 325 mg tablet 325 mg PO DAILY 02/27/25 02/27/25 History mag citrate-potassium citrate 210 mg PO DAILY 02/27/25 02/27/25 History metoprolol succinate 25 mg 25 mg PO DAILY 02/27/25 02/27/25 History tablet,extended release 24 hr [id number] 8 mg-folic 400 1 tablet PO DAILY 02/27/25 02/27/25 History mcg-K 50 mcg-lutein 300 mcg tablet (Centrum Silver Women) nitroglycerin 0.4 mg sublingual 0.4 mg sublingual Q5M PRN chest 02/27/25 02/27/25 Rx tablet pain #25 tabs pen needle, diabetic 32 gauge x #100 ea 02/27/25 02/27/25 Rx / vitamin E 268 mg (400 unit) capsule 268 mg PO DAILY 02/27/25 02/27/25 History Allergies Allergy/AdvReac Type Severity Reaction Status Date / Time Sulfa (Sulfonamide Allergy Unknown causes a Verified 02/27/25 11:13 Antibiotics) fever Vital Signs Vital Signs - 24 hr 02/27/25 12:40 02/27/25 13:54 02/27/25 14:19 Temperature 36.4 C L Pulse Rate 121 H 120 H 132 H Respiratory Rate 16 18 Blood Pressure 153/81 H 146/126 H Pulse Oximetry 97 98 Oxygen Delivery Room Air 02/27/25 14:20 02/27/25 14:26 02/27/25 14:39 Temperature Pulse Rate 130 H 123 H 126 H Respiratory Rate 19 19 Blood Pressure 121/88 120/96 H Pulse Oximetry 98 96 Oxygen Delivery 02/27/25 14:40 02/27/25 15:16 02/27/25 15:57 Temperature Pulse Rate 127 H 116 H 116 H Respiratory Rate 18 20 Blood Pressure 114/76 128/82 Pulse Oximetry 97 96 Oxygen Delivery 02/27/25 16:29 02/27/25 16:41 02/27/25 18:00 Temperature 36.4 C Pulse Rate 117 H 103 H Respiratory Rate 24 H Blood Pressure 136/85 Pulse Oximetry 97 Oxygen Delivery Room Air 02/27/25 18:20 02/27/25 18:30 02/27/25 20:00 Temperature 37.2 C Pulse Rate 120 H 121 H 114 H Respiratory Rate 20 Blood Pressure 136/85 109/62 98/65 L Pulse Oximetry 96 Oxygen Delivery 02/27/25 20:00 02/27/25 20:12 02/27/25 20:20 Temperature 36.7 C Pulse Rate 101 H 125 H 125 H Respiratory Rate 18 18 Blood Pressure 92/65 L Pulse Oximetry 96 96 Oxygen Delivery Room Air 02/27/25 22:00 02/27/25 22:00 02/27/25 23:49 Temperature Pulse Rate 116 H 116 H 119 H Respiratory Rate 16 Blood Pressure 104/63 Pulse Oximetry 96 Oxygen Delivery Room Air 02/28/25 00:00 02/28/25 00:00 02/28/25 00:06 Temperature 37.0 C Pulse Rate 118 H 121 H 122 H Respiratory Rate 18 Blood Pressure 108/62 108/62 Pulse Oximetry 96 Oxygen Delivery 02/28/25 02:00 02/28/25 02:00 02/28/25 02:00 Temperature Pulse Rate 117 H 117 H 117 H Respiratory Rate 18 Blood Pressure 104/62 104/62 Pulse Oximetry 99 Oxygen Delivery 02/28/25 04:00 02/28/25 04:00 02/28/25 04:00 Temperature 37.1 C Pulse Rate 118 H 118 H 118 H Respiratory Rate 18 Blood Pressure 104/64 104/64 Pulse Oximetry 99 Oxygen Delivery 02/28/25 04:25 02/28/25 06:00 02/28/25 06:00 Temperature Pulse Rate 118 H 105 H 105 H Respiratory Rate 18 Blood Pressure 108/86 Pulse Oximetry 99 Oxygen Delivery Room Air 02/28/25 06:00 02/28/25 08:00 02/28/25 08:01 Temperature 37.1 C Pulse Rate 105 H 126 H 126 H Respiratory Rate 18 20 Blood Pressure 108/86 100/66 100/66 Pulse Oximetry 98 96 Oxygen Delivery 02/28/25 08:52 02/28/25 09:45 02/28/25 09:45 Temperature Pulse Rate 127 H 134 H 137 H Respiratory Rate Blood Pressure 100/66 100/66 Pulse Oximetry Oxygen Delivery 02/28/25 10:22 Temperature 36.7 C Pulse Rate 127 H Respiratory Rate 20 Blood Pressure 104/59 L Pulse Oximetry 97 Oxygen Delivery Exam 2 Const: General: comfortable and no acute distress HENMT: Mouth: Yes moist mucous membranes Eyes: General: appearance normal, both eyes and all related structures S clera: sclerae normal Resp: Effort & Inspection: normal respiratory effort Cardio: Rate: tachycardic Rhythm: abnormal rhythm irregularly irregular Heart sounds: no murmurs Skin: General skin exam: normal color Neuro: Speech: normal speech Psych: Mental Status: mental status grossly normal Affect: normal affect Results Labs and Meds 02/28/25 02:22 02/28/25 02:22 Lab results: Cardiac Enzymes 02/27/25 02/27/25 02/27/25 Range/Units 12:50 15:19 19:58 AST 31 (14-36) U/L Troponin I < 0.012 0.022 D 0.023 (0.000-0.034) ng/mL 02/28/25 Range/Units 02:22 AST 30 (14-36) U/L Troponin I (0.000-0.034) ng/mL Coagulation 02/27/25 02/27/25 02/27/25 Range/Units 12:50 14:19 15:19 PT 13.6 14.9 H (11.1-14.7) Seconds APTT 30.4 > 200.0 H* 190.8 H* (22.3-36.8) Seconds 02/27/25 02/28/25 02/28/25 Range/Units 19:58 02:22 10:11 PT (11.1-14.7) Seconds APTT 108.0 H 91.8 H 70.5 H (22.3-36.8) Seconds CBC 02/27/25 02/27/25 02/28/25 Range/Units 12:50 14:19 02:22 WBC 7.7 7.1 6.9 (4.5-10.0) K/mm3 RBC 5.31 5.14 4.80 (4.2-5.4) M/mm3 Hgb 14.8 14.4 13.5 (12.0-15.0) g/dL Hct 47.3 H 45.7 42.3 (37.0-47.0) % Plt Count 237 230 181 (150-375) k/mm3 Lymph # (Auto) 2.05 1.70 1.94 (0.9-3.2) K/mm3 [place] # (Auto) 0.8 H 0.7 H 0.7 H (0.1-0.6) K/mm3 Eos # (Auto) 0.3 0.3 0.3 (0-0.3) K/mm3 Baso # (Auto) 0.0 0.0 0.0 (0.0-0.1) K/mm3 Comprehensive Metabolic Panel 02/27/25 02/28/25 Range/Units 12:50 02:22 Sodium 142 139 (137-145) mmol/L Potassium 4.3 3.9 (3.4-5.0) mmol/L Chloride 108 H 107 (98-107) mmol/L Carbon Dioxide 21 L 22 (22-30) mmol/L BUN 24 H 27 H (7-17) mg/dL Creatinine 1.05 H 0.98 (0.7-1.0) mg/dL Glucose 107 85 (65-110) mg/dL Calcium 9.6 8.9 (8.4-10.2) mg/dL AST 31 30 (14-36) U/L ALT 36 H 32 (6-35) U/L Alkaline Phosphatase 101 76 (38-126) U/L Total Protein 8.0 6.0 L (6.3-8.2) g/dL Albumin 4.7 4.0 (3.5-5.1) g/dL Intake and Output 02/27/25 02/28/25 02/28/25 23:59 07:59 15:59 Intake Total 453.0 678 318.3 Output Total 300 Balance 453.0 378 318.3 Intake: IV 113.0 128 78.3 Heparin Sod/D5w 100 Units/ml 25 94.7 88 55.2 ,000 units In 250 ml @ 1,100 UNITS/HR 11 mls/hr IV CONT . [id number] [facility] Rx#:[id number] dilTIAZem 100 MG/100 ML 100 mg 18.3 40 23.1 In 100 ml @ 5 MG/HR 5 mls/hr IV CONT .Q20H [facility] Rx#:[id number] Oral 340 550 240 Output: Urine 300 Patient Weight 02/28/25 23:59 Weight 89.2 kg
[2025-02-28] MEDS: APIXABAN 5 MG TABLET PO ×2 (11:26→20:30)
[2025-02-28 11:43] LABS: Glucose Point of Care 108 mg/dl (65-105)
[2025-02-28] MEDS: METOPROLOL TARTRATE 25 MG TABLET PO ×3 (13:53→23:36)
[2025-02-28 15:49] LABS: Glucose Point of Care 111 mg/dl (65-105)
--- NOTE | 2025-02-28 16:25 | PM.IMPN ---
Progress Note: A&P Assessment and Plan (1) Atrial flutter with rapid ventricular response: Code(s): I48.92 - Unspecified atrial flutter Status: Acute Assessment and Plan: Initial EKG showed atrial flutter/atrial tachycardia with RVR. See report for full details. Previously on metoprolol ER 25 mg daily. Given metoprolol 5 mg IV x3 (121 -> 117) however now back and sustaining in the 120s. Will start diltiazem gtt at 5 mg/hr with 10 mg IV push. Heparin initiated to bridge to anticoagulation, CHADSVasc 6. Check echo (none on file). Recent TSH was WNL on 02/23/25 Cardiology consulted. Admission to IMU for close hemodynamic monitoring and telemetry monitoring. titrate cardizem drip if needed (2) SOB (shortness of breath): Code(s): R06.02 - Shortness of breath Status: Acute Assessment and Plan: CXR showed a left basilar atelectasis versus pneumonia. Personal review of imaging favors atelectasis. Patient is afebrile and no leukocytosis, low suspicion for pneumonia. Continue to monitor WBC. New atrial flutter discovered at her PCP office, see above. No echo on file, ordered due to new atrial flutter. Wells criteria: 0 No anemia or significant electrolyte derangements on initial lab work. DDx: Paroxysmal atrial flutter, congestive heart failure, pneumonia, myocardial infarction. In favor of paroxysmal atrial flutter, unclear onset. (3) Diabetes mellitus type 2 in obese: Code(s): E11.69 - Type 2 diabetes mellitus with other specified complication; E66.9 - Obesity, unspecified Status: Acute Assessment and Plan: hypoglycemia protocol POC blood glucose ACHS home medication: Hold Synjardy XR in case of need for contrast. Hold Victoza 1.8 mg SQ daily (NF). correct regimen ordered - high dose TIDWM and HS, based off BMI A1C 5.7% on 02/23/2025 (4) Hypertension: Qualifiers: Hypertension type: primary hypertension Qualified Code(s): I10 - Essential (primary) hypertension Code(s): I10 - Essential (primary) hypertension Status: Acute Assessment and Plan: chronic continue home medications: Hold Amlodipine-valsartan 5-160 mg daily, low end of normal, resume when appropriate. Hold metoprolol ER 25 mg daily, new atrial flutter requiring med adjustments. monitor Plan Diet: Heart healthy GI Prophylaxis: Not currently indicated DVT Prophylaxis: Heparin dr stopped, eliquis started IV fluids: None Lines/Tubes: Peripheral IV Code Status: Full code Time Spent With Patient Time with patient: 25 - 35 minutes Subjective Date/time seen: 02/28/25 16:25 Interval history: 79 y/o F with PMH of diabetes, HLD, HTN, atherosclerotic heart disease, CABG (5 vessel), cardiac arrest (30 years ago), and anxiety presents here with new atrial fibrillation. Pt is seen and examined. Cardiology consulted, she is no cardizem drip. remained around 110-120's, asymptomatic. Review of Systems Review of Systems: All systems reviewed & are unremarkable except as noted in HPI and below Exam Narrative: irreg, mild tachy. no edema. otherwise fine. Const: General: comfortable and no acute distress Other: , female, elderly, nontoxic appearance HENMT: Face/Nose/Sinus: Normal nares present Mouth: Yes moist mucous membranes Eyes: General: appearance normal, both eyes and all related structures Sclera: sclerae normal Pupils: Equal, round and reactive pupils present EOM: EOMs intact bilaterally Resp: Effort & Inspection: normal respiratory effort Auscultation: clear to auscultation bilaterally Cardio: Rate: tachycardic (Mild, 110-117) Rhythm: abnormal rhythm (Consistent with new atrial flutter) Other: No murmur or rub. GI: Other: Abdomen soft, nondistended, nontender. Normoactive bowel sounds in all quadrants. Skin: General skin exam: normal color and no rashes or lesions noted Wounds: no wounds Neuro: Cranial nerves: Yes Equal, round and reactive pupils present Speech: normal speech Motor exam (neuro): 5/5 motor strength present throughout Sensory Exam: normal sensation Other: A&O x4 Extrem: General: normal to inspection Psych: Mental Status: mental status grossly normal Affect: normal affect Other: Good insight and judgment, very pleasant Objective Data Vital Signs Vital Signs: Vital Signs - 24 hr 02/27/25 16:29 02/27/25 16:41 02/27/25 18:00 Temperature 97.6 F Pulse Rate 117 H 103 H Respiratory Rate 24 H Blood Pressure 136/85 Pulse Oximetry 97 Oxygen Delivery Room Air 02/27/25 18:20 02/27/25 18:30 02/27/25 20:00 Temperature 98.9 F Pulse Rate 120 H 121 H 114 H Respiratory Rate 20 Blood Pressure 136/85 109/62 98/65 L Pulse Oximetry 96 Oxygen Delivery 02/27/25 20:00 02/27/25 20:12 02/27/25 20:20 Temperature 98.1 F Pulse Rate 101 H 125 H 125 H Respiratory Rate 18 18 Blood Pressure 92/65 L Pulse Oximetry 96 96 Oxygen Delivery Room Air 02/27/25 22:00 02/27/25 22:00 02/27/25 23:49 Temperature Pulse Rate 116 H 116 H 119 H Respiratory Rate 16 Blood Pressure 104/63 Pulse Oximetry 96 Oxygen Delivery Room Air 02/28/25 00:00 02/28/25 00:00 02/28/25 00:06 Temperature 98.6 F Pulse Rate 118 H 121 H 122 H Respiratory Rate 18 Blood Pressure 108/62 108/62 Pulse Oximetry 96 Oxygen Delivery 02/28/25 02:00 02/28/25 02:00 02/28/25 02:00 Temperature Pulse Rate 117 H 117 H 117 H Respiratory Rate 18 Blood Pressure 104/62 104/62 Pulse Oximetry 99 Oxygen Delivery 02/28/25 04:00 02/28/25 04:00 02/28/25 04:00 Temperature 98.8 F Pulse Rate 118 H 118 H 118 H Respiratory Rate 18 Blood Pressure 104/64 104/64 Pulse Oximetry 99 Oxygen Delivery 02/28/25 04:25 02/28/25 06:00 02/28/25 06:00 Temperature Pulse Rate 118 H 105 H 105 H Respiratory Rate 18 Blood Pressure 108/86 Pulse Oximetry 99 Oxygen Delivery Room Air 02/28/25 06:00 02/28/25 08:00 02/28/25 08:00 Temperature Pulse Rate 105 H 126 H 124 H Respiratory Rate 18 Blood Pressure 108/86 100/66 Pulse Oximetry 98 Oxygen Delivery 02/28/25 08:00 02/28/25 08:01 02/28/25 08:52 Temperature 98.8 F Pulse Rate 126 H 127 H Respiratory Rate 20 Blood Pressure 100/66 Pulse Oximetry 96 96 Oxygen Delivery Room Air 02/28/25 09:45 02/28/25 09:45 02/28/25 10:00 Temperature Pulse Rate 134 H 137 H 127 H Respiratory Rate Blood Pressure 100/66 100/66 104/59 L Pulse Oximetry Oxygen Delivery 02/28/25 10:00 02/28/25 10:22 02/28/25 11:48 Temperature 98.0 F 97.9 F Pulse Rate 128 H 127 H 78 Respiratory Rate 20 20 Blood Pressure 104/59 L 108/50 L Pulse Oximetry 97 96 Oxygen Delivery 02/28/25 12:00 02/28/25 12:00 02/28/25 13:53 Temperature Pulse Rate 127 H 126 H Respiratory Rate Blood Pressure Pulse Oximetry 96 Oxygen Delivery Room Air 02/28/25 14:00 02/28/25 15:30 02/28/25 15:52 Temperature 98.2 F Pulse Rate 120 H 116 H Respiratory Rate 20 Blood Pressure 100/79 Pulse Oximetry 97 94 Oxygen Delivery Room Air Intake/Output Intake/Output: Intake & Output 02/25/25 02/26/25 02/27/25 02/28/25 23:59 23:59 23:59 23:59 Intake Total 453.0 1238.8 Output Total 600 Balance 453.0 638.8 Meds/Results Medications: Active Medications Generic Name Dose Route Start Last Admin Trade Name Freq PRN Reason Stop Dose Admin Acetaminophen 650 mg 02/27/25 14:46 Acetaminophen 325 Mg Tablet PO Q4H PRN Mild Pain (1-3) or Fever Hydrocodone Bitart/Acetaminophen 1 tab 02/27/25 17:31 Hydrocodone/Acetaminophen (*Crx) 5-325 Mg Tablet PO Q4-6H PRN pain 4-6 Apixaban 5 mg 02/28/25 11:05 02/28/25 11:26 Apixaban 5 Mg Tablet PO 5 mg Q12HR LAINE Administration Ascorbic Acid 1,500 mg 02/28/25 09:00 02/28/25 09:19 Ascorbic Acid 500 Mg Tablet PO 1,500 mg DAILY LAINE Administration Atorvastatin Calcium 80 mg 02/28/25 09:00 02/28/25 09:19 Atorvastatin 40 Mg Tablet PO 80 mg DAILY LAINE Administration Bupropion HCl 150 mg 02/27/25 21:00 02/28/25 09:19 Bupropion Hcl Sr (12 Hr) 150 Mg Tab PO 150 mg Q12HR LAINE Administration Dextrose 12.5 gm 02/27/25 17:37 Dextrose 50% 25 Gm/50 Ml Syringe IV PUSH PRN PRN Hypoglycemia Protocol Ezetimibe 10 mg 02/28/25 09:00 02/28/25 09:19 Ezetimibe 10 Mg Tablet PO 10 mg DAILY LAINE Administration Glucagon 1 mg 02/27/25 17:37 Glucagon For Inj 1 Mg Vial IM PRN PRN Hypoglycemia Protocol Glucose 15 gm 02/27/25 17:37 Glucose Oral Gel 15 Gm Of Glucse In 37.5 Gm Tube PO PRN PRN Hypoglycemia Protocol Dextrose 1,000 mls @ 100 mls/hr 02/27/25 17:37 Dextrose 5% 1,000 Ml IVPB PRN PRN Hypoglycemia Protocol Insulin Aspart 2 - 4 units 02/27/25 21:00 02/27/25 20:09 Insulin Aspart (*Bkc) 100 Units/Ml SUB-Q Not Given HS LAINE Protocol Insulin Aspart 4 - 8 units 02/28/25 08:00 02/28/25 12:00 Insulin Aspart (*Bkc) 100 Units/Ml SUB-Q Not Given TIDWM LAINE Protocol Melatonin 3 mg 02/27/25 22:47 Melatonin 3 Mg Tablet PO HS PRN Insomnia Metoprolol Tartrate 25 mg 02/28/25 13:00 02/28/25 13:53 Metoprolol Tartrate 25 Mg Tablet PO 25 mg Q6HR LAINE Administration Multivitamins/Calcium 1 tablet 02/28/25 09:00 02/28/25 09:19 Therapeutic Multivitamins/Minerals Tab (*Bkc) PO 1 tablet DAILY LAINE Administration Nitroglycerin 0.4 mg 02/27/25 17:31 Nitroglycerin Sl 0.4 Mg Tablet SUBLINGUAL Q5M PRN chest pain Nonformulary 1 each 02/27/25 17:43 Nutritional XX 02/28/25 17:42 Supplements Mag PRN PRN Citrate-Potassium PROTOCOL Citrate 210 Mg Capsule) Ondansetron HCl 4 mg 02/27/25 14:46 Ondansetron Inj 4 Mg/2 Ml Vial IV PUSH Q4H PRN Nausea Vitamin E 400 unit 02/28/25 09:00 02/28/25 09:19 Vitamin E 400 Unit Capsule PO 400 unit DAILY LAINE Administration Radiology Results: ITS Impressions Chest X-Ray 02/27/25 13:51 IMPRESSION: Left basilar atelectasis versus pneumonia. Labs Labs: Laboratory Results - last 24 hr 02/27/25 02/27/25 02/28/25 19:51 19:58 02:22 WBC 6.9 RBC 4.80 Hgb 13.5 Hct 42.3 MCV 88.1 MCH 28.1 MCHC 31.9 L RDW 14.6 H Plt Count 181 MPV 9.6 Immature Gran % (Auto) 0.3 Neut % (Auto) 56.4 Lymph % (Auto) 28.2 [place] % (Auto) 10.3 H Eos % (Auto) 4.2 Baso % (Auto) 0.6 Lymph # (Auto) 1.94 [place] # (Auto) 0.7 H Eos # (Auto) 0.3 Baso # (Auto) 0.0 Abs Immat Gran (auto) 0.02 Absolute Neuts (auto) 3.9 Absolute Nucleated RBC 0.000 Nucleated RBC % 0.0 APTT 108.0 H 91.8 H Sodium 139 Potassium 3.9 Chloride 107 Carbon Dioxide 22 Anion Gap 10 BUN 27 H Creatinine 0.98 Estim Creat Clear Calc 41 Estimated GFR 55 L Glucose 85 POC Capillary Glucose 115 H Calcium 8.9 Total Bilirubin 0.6 AST 30 ALT 32 Alkaline Phosphatase 76 Troponin I 0.023 Total Protein 6.0 L Albumin 4.0 02/28/25 02/28/25 02/28/25 07:29 10:11 11:39 WBC RBC Hgb Hct MCV MCH MCHC RDW Plt Count MPV Immature Gran % (Auto) Neut % (Auto) Lymph % (Auto) [place] % (Auto) Eos % (Auto) Baso % (Auto) Lymph # (Auto) [place] # (Auto) Eos # (Auto) Baso # (Auto) Abs Immat Gran (auto) Absolute Neuts (auto) Absolute Nucleated RBC Nucleated RBC % APTT 70.5 H Sodium Potassium Chloride Carbon Dioxide Anion Gap BUN Creatinine Estim Creat Clear Calc Estimated GFR Glucose POC Capillary Glucose 93 108 H Calcium Total Bilirubin AST ALT Alkaline Phosphatase Troponin I Total Protein Albumin 02/28/25 15:43 WBC RBC Hgb Hct MCV MCH MCHC RDW Plt Count MPV Immature Gran % (Auto) Neut % (Auto) Lymph % (Auto) [place] % (Auto) Eos % (Auto) Baso % (Auto) Lymph # (Auto) [place] # (Auto) Eos # (Auto) Baso # (Auto) Abs Immat Gran (auto) Absolute Neuts (auto) Absolute Nucleated RBC Nucleated RBC % APTT Sodium Potassium Chloride Carbon Dioxide Anion Gap BUN Creatinine Estim Creat Clear Calc Estimated GFR Glucose POC Capillary Glucose 111 H Calcium Total Bilirubin AST ALT Alkaline Phosphatase Troponin I Total Protein Albumin Quality VTE Prophylaxis VTE prophylaxis: pharmacologic ordered
[2025-02-28 20:17] LABS: Glucose Point of Care 125 mg/dl (65-105)
--- NOTE | 2025-02-28 23:04 | ECG_ITS ---
Test Date: 2025-02-28 23:33:55 Measurements Intervals [place] Rate: 114 P: 0 SC: 0 QRS: -40 QRSD: 108 T: 76 QT: 332 QTc: 458 Interpretive Statements ATRIAL FLUTTER/TACHYCARDIA WITH RAPID VENTRICULAR RESPONSE LEFT AXIS DEVIATION PATTERN CONSISTENT WITH PULMONARY DISEASE INCOMPLETE RIGHT BUNDLE BRANCH BLOCK LEFT VENTRICULAR HYPERTROPHY WITH ST-T CHANGE CANNOT R/O SEPTAL INFARCT, AGE INDETERMINATE ABNORMAL ECG Compared to ECG 02/27/2025 15:29:13 NO SIGNIFICANT CHANGE Electronically Signed On 03-01-2025 05:21:37 CDT by Lester Botello D.O.
[2025-03-01] VITALS (18 sets, daily range): BP systolic 98–127; BP diastolic 57–97; PULSE 76–123; RESP 14–20; TEMP 36.4–37.1; O2SAT 95–99
[2025-03-01] MEDS: METOPROLOL TARTRATE 25 MG TABLET PO ×2 (05:36→12:37)
[2025-03-01 07:50] LABS: Glucose Point of Care 107 mg/dl (65-105)
--- NOTE | 2025-03-01 08:37 | PM.IMPN ---
Progress Note: A&P Assessment and Plan (1) Atrial flutter with rapid ventricular response: Code(s): I48.92 - Unspecified atrial flutter Status: Acute Assessment and Plan: Initial EKG showed atrial flutter/atrial tachycardia with RVR. See report for full details. Previously on metoprolol ER 25 mg daily. Given metoprolol 5 mg IV x3 (121 -> 117) however now back and sustaining in the 120s. Will start diltiazem gtt at 5 mg/hr with 10 mg IV push. Heparin initiated to bridge to anticoagulation, CHADSVasc 6. Check echo (none on file). Recent TSH was WNL on 02/23/25 Cardiology consulted. Admission to IMU for close hemodynamic monitoring and telemetry monitoring. titrate cardizem drip if needed -cardiology following - LVEF appears to be moderately reduced -so Diltazem drip was stopped and start PO Metoprolol. Holding off on initiating additional GDMT at this time due to low BP. LUANNE/DCCV scheduled for 2PM 03/01. stable (2) SOB (shortness of breath): Code(s): R06.02 - Shortness of breath Status: Acute Assessment and Plan: CXR showed a left basilar atelectasis versus pneumonia. Personal review of imaging favors atelectasis. Patient is afebrile and no leukocytosis, low suspicion for pneumonia. Continue to monitor WBC. New atrial flutter discovered at her PCP office, see above. No echo on file, ordered due to new atrial flutter. Wells criteria: 0 No anemia or significant electrolyte derangements on initial lab work. - no c/o sob, stable-monitor resp status (3) Diabetes mellitus type 2 in obese: Code(s): E11.69 - Type 2 diabetes mellitus with other specified complication; E66.9 - Obesity, unspecified Status: Acute Assessment and Plan: hypoglycemia protocol POC blood glucose ACHS home medication: Hold Synjardy XR in case of need for contrast. Hold Victoza 1.8 mg SQ daily (NF). correct regimen ordered - high dose TIDWM and HS, based off BMI A1C 5.7% on 02/23/2025 (4) Hypertension: Qualifiers: Hypertension type: primary hypertension Qualified Code(s): I10 - Essential (primary) hypertension Code(s): I10 - Essential (primary) hypertension Status: Acute Assessment and Plan: chronic Hold Amlodipine-valsartan 5-160 mg daily, low end of normal, resume when appropriate. monitor Plan Diet: Heart healthy GI Prophylaxis: Not currently indicated DVT Prophylaxis: Heparin dr stopped, eliquis started IV fluids: None Lines/Tubes: Peripheral IV Code Status: Full code Time Spent With Patient Time with patient: 25 - 35 minutes Subjective Date/time seen: 03/01/25 08:37 Interval history: 79 y/o F with PMH of diabetes, HLD, HTN, atherosclerotic heart disease, CABG (5 vessel), cardiac arrest (30 years ago), and anxiety presents here with new atrial fibrillation. Pt is seen and examined. Cardiology following. Cardizem drip was stopped yesterday. remained around 110-120's, asymptomatic. She was started on metoprolol. LUANNE/DCCV scheduled for 2PM 03/01. Review of Systems Review of Systems: All systems reviewed & are unremarkable except as noted in HPI and below Exam Narrative: irreg, mild tachy. no edema. otherwise fine. Const: General: comfortable and no acute distress Other: , female, elderly, nontoxic appearance HENMT: Face/Nose/Sinus: Normal nares present Mouth: Yes moist mucous membranes Eyes: General: appearance normal, both eyes and all related structures Sclera: sclerae normal Pupils: Equal, round and reactive pupils present EOM: EOMs intact bilaterally Resp: Effort & Inspection: normal respiratory effort Auscultation: clear to auscultation bilaterally Cardio: Rate: tachycardic (Mild, 110-117) Rhythm: abnormal rhythm (Consistent with new atrial flutter) Other: No murmur or rub. GI: Other: Abdomen soft, nondistended, nontender. Normoactive bowel sounds in all quadrants. Skin: General skin exam: normal color and no rashes or lesions noted Wounds: no wounds Neuro: Cranial nerves: Yes Equal, round and reactive pupils present Speech: normal speech Motor exam (neuro): 5/5 motor strength present throughout Sensory Exam: normal sensation Other: A&O x4 Extrem: General: normal to inspection Psych: Mental Status: mental status grossly normal Affect: normal affect Other: Good insight and judgment, very pleasant Objective Data Vital Signs Vital Signs: Vital Signs - 24 hr 02/28/25 08:52 02/28/25 09:45 02/28/25 09:45 Temperature Pulse Rate 127 H 134 H 137 H Respiratory Rate Blood Pressure 100/66 100/66 Pulse Oximetry Oxygen Delivery 02/28/25 10:00 02/28/25 10:00 02/28/25 10:22 Temperature 98.0 F Pulse Rate 127 H 128 H 127 H Respiratory Rate 20 Blood Pressure 104/59 L 104/59 L Pulse Oximetry 97 Oxygen Delivery 02/28/25 11:48 02/28/25 12:00 02/28/25 12:00 Temperature 97.9 F Pulse Rate 78 127 H Respiratory Rate 20 Blood Pressure 108/50 L Pulse Oximetry 96 96 Oxygen Delivery Room Air 02/28/25 13:53 02/28/25 14:00 02/28/25 15:30 Temperature Pulse Rate 126 H 120 H Respiratory Rate Blood Pressure Pulse Oximetry 97 Oxygen Delivery Room Air 02/28/25 15:52 02/28/25 16:00 02/28/25 16:00 Temperature 98.2 F Pulse Rate 116 H 122 H Respiratory Rate 20 Blood Pressure 100/79 Pulse Oximetry 94 94 Oxygen Delivery Room Air 02/28/25 17:53 02/28/25 18:00 02/28/25 19:39 Temperature 98.1 F Pulse Rate 115 H 124 H 97 Respiratory Rate 18 Blood Pressure 103/69 Pulse Oximetry 99 Oxygen Delivery 02/28/25 20:00 02/28/25 20:00 02/28/25 22:00 Temperature Pulse Rate 119 H 117 H Respiratory Rate Blood Pressure Pulse Oximetry Oxygen Delivery Room Air 02/28/25 23:29 02/28/25 23:36 03/01/25 00:00 Temperature 97.7 F Pulse Rate 115 H 115 H Respiratory Rate 18 Blood Pressure 108/73 Pulse Oximetry 100 Oxygen Delivery Room Air 03/01/25 00:00 03/01/25 02:00 03/01/25 04:00 Temperature Pulse Rate 115 H 116 H Respiratory Rate Blood Pressure Pulse Oximetry Oxygen Delivery Room Air 03/01/25 04:00 03/01/25 04:21 03/01/25 05:36 Temperature 98.7 F Pulse Rate 113 H 115 H 115 H Respiratory Rate 18 Blood Pressure 106/66 Pulse Oximetry 99 Oxygen Delivery 03/01/25 06:00 03/01/25 08:05 Temperature 98.5 F Pulse Rate 118 H 121 H Respiratory Rate 18 Blood Pressure 98/57 L Pulse Oximetry 99 Oxygen Delivery Intake/Output Intake/Output: Intake & Output 02/26/25 02/27/25 02/28/25 03/01/25 23:59 23:59 23:59 23:59 Intake Total 453.0 1878.8 550 Output Total 950 700 Balance 453.0 928.8 -150 Meds/Results Medications: Active Medications Generic Name Dose Route Start Last Admin Trade Name Freq PRN Reason Stop Dose Admin Acetaminophen 650 mg 02/27/25 14:46 Acetaminophen 325 Mg Tablet PO Q4H PRN Mild Pain (1-3) or Fever Hydrocodone Bitart/Acetaminophen 1 tab 02/27/25 17:31 Hydrocodone/Acetaminophen (*Crx) 5-325 Mg Tablet PO Q4-6H PRN pain 4-6 Apixaban 5 mg 02/28/25 11:05 02/28/25 20:30 Apixaban 5 Mg Tablet PO 5 mg Q12HR LAINE Administration Ascorbic Acid 1,500 mg 02/28/25 09:00 02/28/25 09:19 Ascorbic Acid 500 Mg Tablet PO 1,500 mg DAILY LAINE Administration Atorvastatin Calcium 80 mg 02/28/25 09:00 02/28/25 09:19 Atorvastatin 40 Mg Tablet PO 80 mg DAILY LAINE Administration Bupropion HCl 150 mg 02/27/25 21:00 02/28/25 20:29 Bupropion Hcl Sr (12 Hr) 150 Mg Tab PO 150 mg Q12HR LAINE Administration Dextrose 12.5 gm 02/27/25 17:37 Dextrose 50% 25 Gm/50 Ml Syringe IV PUSH PRN PRN Hypoglycemia Protocol Ezetimibe 10 mg 02/28/25 09:00 02/28/25 09:19 Ezetimibe 10 Mg Tablet PO 10 mg DAILY LAINE Administration Glucagon 1 mg 02/27/25 17:37 Glucagon For Inj 1 Mg Vial IM PRN PRN Hypoglycemia Protocol Glucose 15 gm 02/27/25 17:37 Glucose Oral Gel 15 Gm Of Glucse In 37.5 Gm Tube PO PRN PRN Hypoglycemia Protocol Dextrose 1,000 mls @ 100 mls/hr 02/27/25 17:37 Dextrose 5% 1,000 Ml IVPB PRN PRN Hypoglycemia Protocol Insulin Aspart 2 - 4 units 02/27/25 21:00 02/28/25 20:29 Insulin Aspart (*Bkc) 100 Units/Ml SUB-Q Not Given HS LAINE Protocol Insulin Aspart 4 - 8 units 02/28/25 08:00 02/28/25 17:02 Insulin Aspart (*Bkc) 100 Units/Ml SUB-Q Not Given TIDWM [facility] Protocol Melatonin 3 mg 02/27/25 22:47 Melatonin 3 Mg Tablet PO HS PRN Insomnia Metoprolol Tartrate 25 mg 02/28/25 13:00 03/01/25 05:36 Metoprolol Tartrate 25 Mg Tablet PO 25 mg Q6HR LAINE Administration Multivitamins/Calcium 1 tablet 02/28/25 09:00 02/28/25 09:19 Therapeutic Multivitamins/Minerals Tab (*Bkc) PO 1 tablet DAILY LAINE Administration Nitroglycerin 0.4 mg 02/27/25 17:31 Nitroglycerin Sl 0.4 Mg Tablet SUBLINGUAL Q5M PRN chest pain Ondansetron HCl 4 mg 02/27/25 14:46 Ondansetron Inj 4 Mg/2 Ml Vial IV PUSH Q4H PRN Nausea Vitamin E 400 unit 02/28/25 09:00 02/28/25 09:19 Vitamin E 400 Unit Capsule PO 400 unit DAILY LAINE Administration Radiology Results: ITS Impressions Chest X-Ray 02/27/25 13:51 IMPRESSION: Left basilar atelectasis versus pneumonia. Labs Labs: Laboratory Results - last 24 hr 02/28/25 02/28/25 02/28/25 07:29 10:11 11:39 APTT 70.5 H POC Capillary Glucose 93 108 H 02/28/25 02/28/25 03/01/25 15:43 19:43 07:39 APTT POC Capillary Glucose 111 H 125 H 107 H Quality VTE Prophylaxis VTE prophylaxis: pharmacologic ordered
[2025-03-01] MEDS: THERAPEUTIC MULTIVITAMINS/MINERALS TAB (*BKC) 1 TABLET PO (09:29)
[2025-03-01] MEDS: APIXABAN 5 MG TABLET PO (09:29)
[2025-03-01] MEDS: VITAMIN E 400 UNIT CAPSULE PO (09:30)
[2025-03-01] MEDS: buPROPion HCL SR (12 HR) 150 MG TAB PO (09:30)
[2025-03-01] MEDS: ATORVASTATIN 40 MG TABLET 80 MG PO (09:30)
[2025-03-01] MEDS: EZETIMIBE 10 MG TABLET PO (09:30)
[2025-03-01] MEDS: ASCORBIC ACID 500 MG TABLET 1500 MG PO (09:30)
--- NOTE | 2025-03-01 10:45 | PM.PNCARD ---
Progress Note: A&P Assessment and Plan (1) Coronary artery disease: Qualifiers: Coronary Disease-Associated Artery/Lesion type: bypass graft [place] vs. transplanted heart: [place] & [place] heart Associated angina: unspecified whether angina present Qualified Code(s): I25.810 - Atherosclerosis of coronary artery bypass graft(s) without angina pectoris Code(s): I25.10 - Atherosclerotic heart disease of [place] coronary artery without angina pectoris Status: Acute (2) S/P CABG x 5: Code(s): Z95.1 - Presence of aortocoronary bypass graft Status: Acute (3) Atrial fibrillation with rapid ventricular response: Code(s): I48.91 - Unspecified atrial fibrillation Status: Acute (4) Hyperlipidemia: Qualifiers: Hyperlipidemia type: mixed hyperlipidemia Qualified Code(s): E78.2 - Mixed hyperlipidemia Code(s): E78.5 - Hyperlipidemia, unspecified Status: Acute Plan 79-year-old woman CAD status post CABG (1997), hypertension, and obesity was referred to emergency from primary care physician office for atrial fibrillation rapid ventricular rates Presumably new onset atrial fibrillation with rapid ventricular rates -continue Eliquis 5 mg p.o. b.i.d. -plan for LUANNE guided cardioversion today Coronary artery disease status post CABG -already on Eliquis for her new onset atrial fibrillation Cardiomyopathy -it is unknown whether this is new onset however due to her symptoms and negative troponins, unlikely to be acute -her blood pressure is a unable to tolerate goal directed medical therapy at this time -no evidence of decompensated heart failure and can have outpatient follow-up Hyperlipidemia -continue atorvastatin and Zetia Subjective Date/time seen: 03/01/25 10:45 Interval history: No chest pain or shortness of breath. For past 3 months she has been feeling more exertional fatigue. Review of Systems Cardiovascular: Cardiovascular: Reports as per HPI Respiratory: Respiratory: Reports as per HPI Exam Const: General: comfortable HENMT: Mouth: Yes moist mucous membranes Eyes: EOM: EOMs intact bilaterally Neck: Neck: no JVD Resp: Effort & Inspection: normal respiratory effort Auscultation: clear to auscultation bilaterally Cardio: Rate: tachycardic Rhythm: abnormal rhythm Extrem: General: pedal edema Objective Data Vital Signs Vital Signs: Vital Signs - 24 hr 02/28/25 11:48 02/28/25 12:00 02/28/25 12:00 Temperature 36.6 C Pulse Rate 78 127 H Respiratory Rate 20 Blood Pressure 108/50 L Pulse Oximetry 96 96 Oxygen Delivery Room Air 02/28/25 13:53 02/28/25 14:00 02/28/25 15:30 Temperature Pulse Rate 126 H 120 H Respiratory Rate Blood Pressure Pulse Oximetry 97 Oxygen Delivery Room Air 02/28/25 15:52 02/28/25 16:00 02/28/25 16:00 Temperature 36.8 C Pulse Rate 116 H 122 H Respiratory Rate 20 Blood Pressure 100/79 Pulse Oximetry 94 94 Oxygen Delivery Room Air 02/28/25 17:53 02/28/25 18:00 02/28/25 19:39 Temperature 36.7 C Pulse Rate 115 H 124 H 97 Respiratory Rate 18 Blood Pressure 103/69 Pulse Oximetry 99 Oxygen Delivery 02/28/25 20:00 02/28/25 20:00 02/28/25 22:00 Temperature Pulse Rate 119 H 117 H Respiratory Rate Blood Pressure Pulse Oximetry Oxygen Delivery Room Air 02/28/25 23:29 02/28/25 23:36 03/01/25 00:00 Temperature 36.5 C Pulse Rate 115 H 115 H Respiratory Rate 18 Blood Pressure 108/73 Pulse Oximetry 100 Oxygen Delivery Room Air 03/01/25 00:00 03/01/25 02:00 03/01/25 04:00 Temperature Pulse Rate 115 H 116 H Respiratory Rate Blood Pressure Pulse Oximetry Oxygen Delivery Room Air 03/01/25 04:00 03/01/25 04:21 03/01/25 05:36 Temperature 37.1 C Pulse Rate 113 H 115 H 115 H Respiratory Rate 18 Blood Pressure 106/66 Pulse Oximetry 99 Oxygen Delivery 03/01/25 06:00 03/01/25 08:00 03/01/25 08:05 Temperature 36.9 C Pulse Rate 118 H 123 H 121 H Respiratory Rate 18 Blood Pressure 98/57 L Pulse Oximetry 99 Oxygen Delivery 03/01/25 10:00 Temperature Pulse Rate 123 H Respiratory Rate Blood Pressure Pulse Oximetry Oxygen Delivery Intake/Output Intake/Output: Intake & Output 02/26/25 02/27/25 02/28/25 03/01/25 23:59 23:59 23:59 23:59 Intake Total 453.0 1878.8 550 Output Total 950 700 Balance 453.0 928.8 -150 Meds/Results Medications: Active Medications Generic Name Dose Route Start Last Admin Trade Name Freq PRN Reason Stop Dose Admin Acetaminophen 650 mg 02/27/25 14:46 Acetaminophen 325 Mg Tablet PO Q4H PRN Mild Pain (1-3) or Fever Hydrocodone Bitart/Acetaminophen 1 tab 02/27/25 17:31 Hydrocodone/Acetaminophen (*Crx) 5-325 Mg Tablet PO Q4-6H PRN pain 4-6 Apixaban 5 mg 02/28/25 11:05 03/01/25 09:29 Apixaban 5 Mg Tablet PO 5 mg Q12HR LAINE Administration Ascorbic Acid 1,500 mg 02/28/25 09:00 03/01/25 09:30 Ascorbic Acid 500 Mg Tablet PO 1,500 mg DAILY LAINE Administration Atorvastatin Calcium 80 mg 02/28/25 09:00 03/01/25 09:30 Atorvastatin 40 Mg Tablet PO 80 mg DAILY LAINE Administration Bupropion HCl 150 mg 02/27/25 21:00 03/01/25 09:30 Bupropion Hcl Sr (12 Hr) 150 Mg Tab PO 150 mg Q12HR LAINE Administration Dextrose 12.5 gm 02/27/25 17:37 Dextrose 50% 25 Gm/50 Ml Syringe IV PUSH PRN PRN Hypoglycemia Protocol Ezetimibe 10 mg 02/28/25 09:00 03/01/25 09:30 Ezetimibe 10 Mg Tablet PO 10 mg DAILY LAINE Administration Glucagon 1 mg 02/27/25 17:37 Glucagon For Inj 1 Mg Vial IM PRN PRN Hypoglycemia Protocol Glucose 15 gm 02/27/25 17:37 Glucose Oral Gel 15 Gm Of Glucse In 37.5 Gm Tube PO PRN PRN Hypoglycemia Protocol Dextrose 1,000 mls @ 100 mls/hr 02/27/25 17:37 Dextrose 5% 1,000 Ml IVPB PRN PRN Hypoglycemia Protocol Insulin Aspart 2 - 4 units 02/27/25 21:00 02/28/25 20:29 Insulin Aspart (*Bkc) 100 Units/Ml SUB-Q Not Given HS LAINE Protocol Insulin Aspart 4 - 8 units 02/28/25 08:00 03/01/25 09:09 Insulin Aspart (*Bkc) 100 Units/Ml SUB-Q Not Given TIDWM LAINE Protocol Melatonin 3 mg 02/27/25 22:47 Melatonin 3 Mg Tablet PO HS PRN Insomnia Metoprolol Tartrate 25 mg 02/28/25 13:00 03/01/25 05:36 Metoprolol Tartrate 25 Mg Tablet PO 25 mg Q6HR LAINE Administration Multivitamins/Calcium 1 tablet 02/28/25 09:00 03/01/25 09:29 Therapeutic Multivitamins/Minerals Tab (*Bkc) PO 1 tablet DAILY LAINE Administration Nitroglycerin 0.4 mg 02/27/25 17:31 Nitroglycerin Sl 0.4 Mg Tablet SUBLINGUAL Q5M PRN chest pain Ondansetron HCl 4 mg 02/27/25 14:46 Ondansetron Inj 4 Mg/2 Ml Vial IV PUSH Q4H PRN Nausea Vitamin E 400 unit 02/28/25 09:00 03/01/25 09:30 Vitamin E 400 Unit Capsule PO 400 unit DAILY LAINE Administration Radiology Results: ITS Impressions Chest X-Ray 02/27/25 13:51 IMPRESSION: Left basilar atelectasis versus pneumonia. Labs Labs: Laboratory Results - last 24 hr 02/28/25 02/28/25 02/28/25 11:39 15:43 19:43 POC Capillary Glucose 108 H 111 H 125 H 03/01/25 07:39 POC Capillary Glucose 107 H
[2025-03-01 11:36] LABS: Glucose Point of Care 112 mg/dl (65-105)
--- NOTE | 2025-03-01 14:00 | ECG_ITS ---
Test Date: 2025-03-01 14:29:55 Measurements Intervals [place] Rate: 71 P: 46 MD: 185 QRS: -38 QRSD: 113 T: 64 QT: 365 QTc: 397 Interpretive Statements SINUS RHYTHM LEFT AXIS DEVIATION INTRAVENTRICULAR CONDUCTION DELAY PATTERN CONSISTENT WITH PULMONARY DISEASE LEFT VENTRICULAR HYPERTROPHY AND ST-T CHANGE BORDERLINE T WAVE ABNORMALITY- LATERAL LEADS BASELINE ARTIFACT- V6 BORDERLINE ECG Compared to ECG 03/01/2025 13:53:23 Atrial flutter no longer present Electronically Signed On 03-01-2025 14:32:00 CDT by Lester Botello D.O.
--- NOTE | 2025-03-01 14:30 | ECG_ITS ---
Test Date: 2025-03-01 13:53:23 Measurements Intervals [place] Rate: 112 P: 0 VT: 0 QRS: -42 QRSD: 110 T: 70 QT: 319 QTc: 436 Interpretive Statements ATRIAL FLUTTER/TACHYCARDIA WITH RAPID VENTRICULAR RESPONSE LEFT AXIS DEVIATION INTRAVENTRICULAR CONDUCTION DELAY PATTERN CONSISTENT WITH PULMONARY DISEASE LEFT VENTRICULAR HYPERTROPHY WITH ST-T CHANGE NONSPECIFIC ST & T-WAVE ABNORMALITY- INFERIOR LEADS BASELINE ARTIFACT- I, II, AVR, AVL, AVF ABNORMAL ECG Compared to ECG 02/28/2025 23:33:55 NO SIGNIFICANT CHANGE Electronically Signed On 03-01-2025 14:03:58 CDT by Lester Botello D.O.
--- NOTE | 2025-03-01 15:30 | WPDTECDV ---
LUANNE with Cardioversion Date of procedure: 03/01/25 Procedure Type: Date Of Procedure: 03/01/2025 Brief History Of Present Illness: 79-year-old woman who was sent in from primary care physician office for atrial fibrillation with rapid ventricular rates who is also now found to cardiomyopathy is referred for LUANNE guided cardioversion. Procedure In Detail: After verbal and written informed consent was obtained, the patient risks, benefits, and alternatives explained in detail. The patient agreed to proceed with the plan of care as outlined above.?The patient was evaluated at bedside in her room.?The posterior oropharynx, neck, and jaw angle all within normal limits on examination. Lungs were clear to auscultation. The patient was then placed in the appropriate 30 to 45 degree angle supine position.?The posterior hypopharynx was then locally anesthetized using repeated administration of Hurricaine spray. After local anesthetic of the posterior hypopharynx was achieved and the oral bite block placed, sedation was administered by Anesthesia faculty.?The transesophageal echocardiogram probe was advanced through the oral bite block into the posterior hypopharynx and into the esophagus easily and without complication once adequate sedation provided.?Multiple, multiplanar echocardiographic images were obtained in multiple standard re-projections.?Pulsed wave, continuous-wave, and color-flow Doppler were utilized in conjunction with this study.?At the conclusion of the study, the transesophageal echocardiogram probe was removed easily and without complication. Synchronized cardioversion was performed via 200J with zoroastrian of sinus rhythm. The patient tolerated the procedure well without difficulty. Sedation and monitoring by anesthesia faculty FINDINGS: LEFT VENTRICLE: The left ventricular systolic function is moderately reduced. The septum and apex are akinetic and the remaining ornelas are hypokinetic. RIGHT VENTRICLE:? The right ventricular systolic function is reduced. LEFT ATRIUM: The left atrium is dilated. RIGHT ATRIUM: The right atrium is normal size. INTERATRIAL SEPTUM: Interatrial septum is anatomically normal without evidence of shunt with color-flow Doppler. MITRAL VALVE: The mitral valve leaflets are thickened but opens well. There is mild mitral regurgitation. AORTIC VALVE: The aortic valve is trileaflet. The non coronary cusp is restricted leading to mild aortic stenosis. There is no aortic regurgitation. TRICUSPID VALVE: The tricuspid valve is anatomically normal with normal leaflet excursion with mild regurgitation identified.? PULMONIC VALVE: Pulmonic valve was not well visualized, however, no regurgitation was identified.? LEFT ATRIAL APPENDAGE: No thrombus was identified in the left atrial appendage. ? Left atrial appendage velocities averaged approximately 37 centimeters/second.? PERICARDIUM: The pericardium was anatomically normal without significant pericardial effusion. ? AORTA: Mild atherosclerotic disease. Complications: None Conclusion: Successful synchronized cardioversion with zoroastrian sinus rhythm. Will change Lopressor to metoprolol succinate 50 mg p.o. daily. Continue Eliquis 5 mg p.o. b.i.d. and patient can follow up with Dr. Da Silva in clinic for further workup of her cardiomyopathy.
[2025-03-01 15:34] LABS: Glucose Point of Care 118 mg/dl (65-105)
--- NOTE | 2025-03-01 15:53 | PM.DS ---
DS: Admitting Diagnosis Discharge Date 03/01 Admitting Diagnosis afib DS: Discharge Diagnosis Discharge Diagnosis (1) Atrial flutter with rapid ventricular response: Code(s): I48.92 - Unspecified atrial flutter Status: Acute (2) SOB (shortness of breath): Code(s): R06.02 - Shortness of breath Status: Acute (3) Diabetes mellitus type 2 in obese: Code(s): E11.69 - Type 2 diabetes mellitus with other specified complication; E66.9 - Obesity, unspecified Status: Acute (4) Hypertension: Qualifiers: Hypertension type: primary hypertension Qualified Code(s): I10 - Essential (primary) hypertension Code(s): I10 - Essential (primary) hypertension Status: Acute DS: Summary Hospital Course Hospital Course: 79 y/o F with PMH of diabetes, HLD, HTN, atherosclerotic heart disease, CABG (5 vessel), cardiac arrest (30 years ago), and anxiety presents here with new atrial fibrillation. Started initially on Cardizem drip but LVEF appears to be moderately reduced -so Diltazem drip was stopped and start PO Metoprolol. Holding off on initiating additional GDMT at this time due to low BP. remained around 110-120's, asymptomatic. She was seen per cardiology and started on metoprolol. LUANNE/DCCV scheduled for 2PM 03/01. Recent TSH was WNL on 02/23/25 Had successful synchronized cardioversion, NSR. Ok to discharge per cardiology: Will change Lopressor to metoprolol succinate 50 mg p.o. daily. Continue Eliquis 5 mg p.o. b.i.d. and patient can follow up with Dr. Da Silva in clinic for further workup of her cardiomyopathy. Time Spent with Patient Time attestation: Total time spent providing and/or coordinating discharge services: Exam Narrative: irreg, mild tachy. no edema. otherwise fine. Const: General: comfortable and no acute distress Other: , female, elderly, nontoxic appearance HENMT: Face/Nose/Sinus: Normal nares present Mouth: Yes moist mucous membranes Eyes: General: appearance normal, both eyes and all related structures Sclera: sclerae normal Pupils: Equal, round and reactive pupils present EOM: EOMs intact bilaterally Resp: Effort & Inspection: normal respiratory effort Auscultation: clear to auscultation bilaterally Cardio: Rate: tachycardic (Mild, 110-117) Rhythm: abnormal rhythm (Consistent with new atrial flutter) Other: No murmur or rub. GI: Other: Abdomen soft, nondistended, nontender. Normoactive bowel sounds in all quadrants. Skin: General skin exam: normal color and no rashes or lesions noted Wounds: no wounds Neuro: Cranial nerves: Yes Equal, round and reactive pupils present Speech: normal speech Motor exam (neuro): 5/5 motor strength present throughout Sensory Exam: normal sensation Other: A&O x4 Extrem: General: normal to inspection Psych: Mental Status: mental status grossly normal Affect: normal affect Other: Good insight and judgment, very pleasant DS: Data Data Completed and Pending Labs on day of discharge: Labs from last 24 hours 03/01/25 03/01/25 03/01/25 15:18 11:33 07:39 POC Capillary Glucose 118 H 112 H 107 H 02/28/25 19:43 POC Capillary Glucose 125 H Discharge Plan Discharge Attending physician on discharge: Kajal Chapa Consulting providers: Vu Schaefer Discharging Clinician: Sharri Mahan Patient Disposition: Home Activity: march shower Diet: heart healthy Discharge Instructions: YOu were admited for fast heart rate. Cardiology saw you and you had successful synchronized cardioversion with caodaism of normal sinus rhythm. Ok to discharge per cardiology: Will change Lopressor to metoprolol succinate 50 mg p.o. daily. Continue Eliquis 5 mg p.o. b.i.d. and patient can follow up with Dr. Da Silva in clinic for further workup of her cardiomyopathy. Since cardiology started you on eliquis, decrease aspirin dose to 81 mg. YOu are at bleeding risk- change position slowly to avoid fall, use soft toothbrush. Patient Instructions: Antibiotic Form Patient Language: Com[place]an Stand Alone Forms: General Discharge Information Follow-up/Referrals: Willi Da Silva MD [Physician] - 2 Weeks Manish Mckeon MD [Primary Care Provider] - 2 Weeks Discharge Medications: New metoprolol succinate 50 mg Tablet Extended Release 24 Hr 50 mg PO QAM Qty: 90 0RF Eliquis 5 mg tablet 5 mg PO BID Qty: 90 0RF aspirin 81 mg capsule 81 mg PO DAILY Qty: 90 0RF Continued (DME) pen needle, diabetic 32 gauge x 1/4 needle See Rx Instructions .Route Qty: 100 3RF Rx Instructions: As directed. For use with Victoza pen BD micro/ultra fine needle nitroglycerin 0.4 mg tablet, sublingual 0.4 mg sublingual Q5M PRN (Reason: chest pain) Qty: 25 0RF Rx Instructions: do not exceed 3 doses per episode Centrum Silver Women 8 mg iron-400 mcg-50 mcg tablet 1 tablet PO DAILY mag citrate-potassium citrate 210 mg capsule 210 mg PO DAILY Patient Comments: 99 mg potassium, 210 mg mag vitamin E 268 mg (400 unit) capsule 268 mg PO DAILY ascorbic acid (vitamin C) [C-1000] 1,000 mg tablet 1,500 g PO DAILY atorvastatin 80 mg tablet See Rx Instructions .ROUTE .COMPLEX Qty: 90 1RF Dose Instruction: TAKE 1 TABLET DAILY Rx Instructions: TAKE 1 TABLET DAILY bupropion HCl 150 mg tablet sustained-release 12 hr See Rx Instructions .ROUTE .COMPLEX Qty: 180 1RF Dose Instruction: TAKE 1 TABLET TWICE A DAY Rx Instructions: TAKE 1 TABLET TWICE A DAY Victoza 3-Marty 0.6 mg/0.1 mL (18 mg/3 mL) pen injector See Rx Instructions .ROUTE .COMPLEX Qty: 27 1RF Dose Instruction: INJECT 0.3ML (=1.8MG) SUBCUTANEOUSLY DAILY Rx Instructions: INJECT 0.3ML (=1.8MG) SUBCUTANEOUSLY DAILY hydrocodone-acetaminophen 5-325 mg tablet 1 tablet PO Q4-6H PRN (Reason: pain) Qty: 60 0RF ezetimibe 10 mg tablet See Rx Instructions .ROUTE .COMPLEX Qty: 90 1RF Dose Instruction: TAKE 1 TABLET DAILY Rx Instructions: TAKE 1 TABLET DAILY Synjardy XR 12.5-1,000 mg tablet, IR - ER, biphasic 24hr 1 tablet PO DAILY Qty: 90 1RF Rx Instructions: Please D/C the Alejandrina. Thank you amlodipine-valsartan [Exforge] 5-160 mg tablet 1 tablet PO DAILY Qty: 90 1RF Discontinued aspirin 325 mg tablet 325 mg PO DAILY metoprolol succinate 25 mg tablet extended release 24 hr 25 mg PO DAILY Date of admission: 02/27/25 14:46 Primary Care Provider: Manish Mckeon Admitting Provider: Jason Delaney Attending physician on admission: Jason Delaney Condition: Stable Quality VTE Prophylaxis VTE prophylaxis: pharmacologic ordered Hospitalist MIPS Heart Failure (Exclusion) Patient has history of Heart Transplant or Left Ventricular Assistive Device?: No IF YES, STOP HERE Heart Failure (Qualifier) Patient has current or prior documentation of LVEF less than or equal to 40%, or mod/servere depressed LVSF?: No IF NO, STOP HERE
== END 2025-03-01 16:52 | disposition home or self-care (01) | DRG 309 ==
LOC: ANHED 14:55 → ANHIMU 15:37
PROVIDERS: Emergency Medicine; General Practice; Internal Medicine; Student in an Organized Health Care Education/Training Program; Admitting Provider General Practice; Emergency Provider Student in an Organized Health Care Education/Training Program; PCP Internal Medicine; Visit Provider Nurse Practitioner
PROC: 5A2204Z Restoration of Cardiac Rhythm, Single (ICD-10-PCS; principal; 2025-03-01 14:00)
PROC: B24BZZ4 Ultrasonography of Heart with Aorta, Transesophageal (ICD-10-PCS; CPT 93312; 2025-03-01 14:00)
DX: I48.91 Unspecified atrial fibrillation (principal); J98.11 Atelectasis; I48.92 Unspecified atrial flutter; E11.9 Type 2 diabetes mellitus without complications; I10 Essential (primary) hypertension; I25.10 Atherosclerotic heart disease of native coronary artery without angina pectoris; F41.9 Anxiety disorder, unspecified; E78.2 Mixed hyperlipidemia; E66.9 Obesity, unspecified; I42.9 Cardiomyopathy, unspecified; Z95.1 Presence of aortocoronary bypass graft; Z85.828 Personal history of other malignant neoplasm of skin
CPT/HCPCS: 36415; 71046; 80053; 82948; 83690; 84484; 85025; 85610; 85730; 92960; 93005; 93312; 93320; 93325; 96374; 96375; 99285; A9270; C8929; J1644; J2250; J3010; J7040; Q9957